=== PATIENT | male | born 1955 | race Caucasian/White ===

== ENCOUNTER 2016-10-26 15:38 | Emergency (ER) | payer MEDICARE, MEDICAID ==
[~2016-10-26] VITALS: Ht 167.6 cm; Wt 94.3 kg
[~2016-10-26 15:38] MED LIST: /DULO30CA; /TAMS4CA; ALDA25TA2; AMBI10TA; ASPI325T; BUPR15TA; CARTIA; CELE20TA; CETI10TA; COLA100C2; DARV100T; GAS-80CH; HYDROCODONE; IBUP600T; LEVO150T9; LISI5TAB; METO10TA2; MIRALEX; PERC5TAB8; POTA20TA; PRIL20CA; PRIL40CA; SIMV80TA; SPIR25TA2; SYNT125T; THERGRAN; TORS20TA2; TYLE500T53; VITA500T; VYTO10TA5; ZEGERID; [UNRECOGNIZED DRUG - OTHER]
[2016-10-26 15:40] VITALS: BP 123/73
[2016-10-26] MEDS ORDERED: LAMO50TA PO (15:54)
[2016-10-26] MEDS ORDERED: BELS1TAB3 PO (15:54)
[2016-10-26] MEDS ORDERED: MAGN400T2 PO (15:54)
[2016-10-26] MEDS ORDERED: ATOR1TAB18 PO (15:54)
[2016-10-26] MEDS ORDERED: IBUP80TA PO (15:54)
[2016-10-26] MEDS ORDERED: SERT-138 PO (15:54)
[2016-10-26] MEDS ORDERED: VITA100T2 PO (15:54)
[2016-10-26] MEDS ORDERED: VITA-130 PO (15:54)
[2016-10-26] MEDS ORDERED: POTA20TA6 PO (15:54)
[2016-10-26] MEDS ORDERED: LORA10TA2 PO (15:54)
[2016-10-26] MEDS ORDERED: LISI-542 PO (15:54)
[2016-10-26] MEDS ORDERED: TORS20TA2 PO (15:54)
[2016-10-26] MEDS ORDERED: ASPI81TA4 PO (15:54)
[2016-10-26] MEDS ORDERED: PRAZ2CAP PO (15:54)
[2016-10-26] MEDS ORDERED: DOK100TA PO (15:54)
[2016-10-26] MEDS ORDERED: TAB-TAB PO (15:54)
[2016-10-26] MEDS ORDERED: AMOX500C PO (15:54)
[2016-10-26] MEDS ORDERED: LEVO125T3 PO (15:54)
[2016-10-26] MEDS ORDERED: BUPR100T3 PO (15:54)
[2016-10-26] MEDS ORDERED: ESOM1CAP5 PO (15:54)
[2016-10-26] MEDS ORDERED: Carbidopa-Levodopa PO (15:54)
[2016-10-26] MEDS ORDERED: BELS1TAB4 PO (15:54)
[2016-10-26] MEDS ORDERED: TRAZ50TA4 PO (15:54)
[2016-10-26] MEDS ORDERED: DILT120T PO (15:54)
--- NOTE | 2016-10-26 16:46 | REP ---
Clinical: Trauma. Technique: AP, lateral, bilateral oblique views right foot. Findings: The osseous structures and joint spaces are intact and normal. There is no evidence for acute fracture or dislocation. Surrounding soft tissues are unremarkable. No subcutaneous emphysema or radiodense foreign body. Impression: No acute fracture or dislocation. Signed by Joe Crain MD 10/26/2016 04:37 P
== END 2016-10-26 17:03 | disposition home or self-care (01) ==
LOC: M ED 16:54
DX: S90.31XA Contusion of right foot, initial encounter (principal); W23.0XXA Caught, crushed, jammed, or pinched between moving objects, initial encounter; Y92.019 Unspecified place in single-family (private) house as the place of occurrence of the external cause; Y93.89 Activity, other specified; Y99.9 Unspecified external cause status; Z87.891 Personal history of nicotine dependence; Z79.899 Other long term (current) drug therapy

== ENCOUNTER 2016-12-26 07:26 | Inpatient (IN) | payer MEDICARE, OTHER ==
[~2016-12-26] VITALS: Ht 167.6 cm; Wt 92.4 kg
[~2016-12-26 07:26] MED LIST changes: +AMOX500C PO; +ASPI81TA18 PO; +ATOR80TA59 PO; +BELS1TAB3 PO; +BELS1TAB4 PO; +BUPR100T3 PO; +Carbidopa-Levodopa PO; +DILT120T PO; +DOK100TA PO; +ESOM1CAP5 PO; +IBUP80TA PO; +LAMO50TA PO; +LEVO125T4 PO; +LISI-542 PO; +LORA10TA2 PO; +MAGN400T2 PO; +POTA20TA6 PO; +PRAZ2CAP PO; +SERT-138 PO; +TAB-TAB PO; +TORS20TA2 PO; +TRAZ50TA11 PO; +VITA100T2 PO; +VITA500T PO
[2016-12-26] MEDS ORDERED: MORPHINE 4 MG/ML 1ML SYRINGE IV ONE (08:00)
[2016-12-26] MEDS ORDERED: ONDANSETRON 4MG/2ML VIAL (J2405) IV ONE ×2 (08:00→23:15)
[2016-12-26 08:02] LABS: BASO % 0.2 % (0.0-1.0); EOS # 0.2 K/mm3 (0.0-0.50); EOS % 0.8 % (0.0-3.0); LARGE UNSTAINED CELL # 0.1 K/mm3 (0.0-0.4); LARGE UNSTAINED CELL % 0.4 % (0.0-4.0); LYMPH # 0.8 K/mm3 (1.5-4.5); MEAN CORPUSCULAR HEMOGLOBIN 29.3 pg (27.0-33.0); MEAN CORPUSCULAR VOLUME 88.8 fl (80.0-96.0); MONO # 0.6 K/mm3 (0.0-0.8); MONO % 2.5 % (0.0-5.0); NEUTROPHILS # 22.9 K/mm3 (1.8-7.7); NEUTROPHILS % 93.1 % (36.0-66.0); PLATELET COUNT, AUTOMATED 291 k/mm3 (150-450); WHITE BLOOD COUNT 24.6 K/mm3 (4.0-10.0)
[2016-12-26 08:32] LABS: ALBUMIN 3.9 GM/DL (3.2-5.2); ALBUMIN/GLOBULIN RATIO 1.08 (1.00-1.93); BILIRUBIN,DIRECT 0.1 MG/DL (0.0-0.2); BILIRUBIN,TOTAL 0.6 MG/DL (0.2-1.0); CALCIUM LEVEL 9.2 MG/DL (8.8-10.2); CREATININE FOR GFR 1.38 MG/DL (0.70-1.30); GLOMERULAR FILTRATION RATE 55.4 (>49); POTASSIUM SERUM 4.3 MEQ/L (3.5-5.1); TOTAL PROTEIN 7.5 GM/DL (6.4-8.2)
[2016-12-26] MEDS: POTASSIUM CHLORIDE 10 MEQ SR TABLET PO SCH (09:00)
[2016-12-26] MEDS ORDERED: ASPIRIN 81 MG ENTERIC TAB PO SCH (09:00)
[2016-12-26] MEDS: THIAMINE 100 MG TAB PO SCH (09:00)
[2016-12-26] MEDS: MAGNESIUM OXIDE 400 MG TAB (MAG-OX) PO SCH (09:00)
[2016-12-26] MEDS: PANTOPRAZOLE 40MG TAB (PROTONIX) PO SCH (09:00)
[2016-12-26] MEDS ORDERED: GASTROGRAFIN SOLUTION 30ML PO ONE (09:40)
[2016-12-26] MEDS ORDERED: ISOVUE-370 76% 100ML VIAL (Q9967) As Ordered ONE (09:48)
[2016-12-26] MEDS ORDERED: GASTROGRAFIN SOLUTION 30ML (Q9963) PO ONE (10:10)
--- NOTE | 2016-12-26 12:03 | REP ---
CT abdomen pelvis with IV and oral contrast: Comparison is 12/13/2015 (without IV and oral contrast). The patient complains of diffuse abdominal pain. The patient has a history of cholecystectomy, triple bypass coronary artery surgery, thyroidectomy and hernia repair. The visualized lower lung emery are unremarkable except for dependent atelectasis. The hepatic parenchyma is homogeneous. There are surgical clips in the gallbladder fossa. The pancreas and spleen are normal size. There are calcified granulomas in the spleen, unchanged. The adrenals are unremarkable. The kidneys are unremarkable. The abdominal aorta is unremarkable except for focal calcified atheroma at the origin of the superior mesenteric artery, possibly resulting in stenosis. The origin of the celiac artery is unremarkable. There is calcified atheroma at the origin of the inferior mesenteric artery. Given patient symptomatology consider abdominal CT angiogram. However, if possible, this should be delayed for 24 hours. Because of the IV contrast administered for the current study. There is no retroperitoneal adenopathy or mass. There is a fixed hiatal hernia, unchanged. No pneumoperitoneum. There is wall thickening of the colon compatible with colitis in the appropriate clinical setting. This is a change from the comparison study. Pelvis: There is no ascites or adenopathy. The bladder is unremarkable. The pelvic bowel loops are unremarkable. Small bowel is unremarkable. There is no ascites. The appendix is not identified. Impression: Wall thickening of the colon compatible with colitis as a change from the prior study. No ascites or pneumoperitoneum. No bowel distension or obstruction. Calcified atheroma at the origins of the superior mesenteric artery and inferior mesenteric artery. Depending on symptomatology, CT abdominal angiography might be considered but this should be delayed for 24 hours, if possible, because of the IV contrast administered for the current study. Cholecystectomy. Calcified granulomas in the spleen. Hiatal hernia. Signed by Yosef Kebede MD 12/26/2016 11:52 A
[2016-12-26] MEDS ORDERED: CIPROFLOXACIN 400 MG in APPROPRIATE DILUENT 1 EA IV ONE (14:15)
[2016-12-26] MEDS ORDERED: metroNIDAZOLE 500 MG in APPROPRIATE DILUENT 1 EA IV ONE (14:15)
[2016-12-26] MEDS ORDERED: CARB25TA PO (14:48)
[2016-12-26] MEDS: NS 1,000 ML IV SCH (14:49)
[2016-12-26] MEDS ORDERED: ACETAMINOPHEN TAB 650MG DOSE (2X325MG) PO PRN (15:00)
--- NOTE | 2016-12-26 15:25 | HPEPDOC ---
General Date of Admission 12/26/16 Chief Complaint The patient is a 61-year-old male Presented to the ER with abdominal pain that progressed to nausea and vomiting. History of Present Illness Patient is a 61 year old male with a PMHx of COPD (ex-smoker, not on home oxygen), CAD s/p CAG (2004), DLP, HTN, Hypothyroidism, Remote Seizure history, ENA not on CPAP and GERD / Barretts esophagus who presented to the ER with abdominal pain. He noted that he had abdominal pain yesterday evening that progressed to nausea and vomiting. He notes that he has vomited >6 times since the onset. He reports that the vomitus is only food stuff and liquid, no signs of blood. He notes that the abdominal pain occurs diffusely, as a 10/10, aching / cramping pain, no radiation or alleviating / aggravating factors. He denies any fever or chills at home. Reports that he does not have diarrhea; has only had 1 bowel movement today. He has noted some blood on the toilet paper. He denies any new foods, denies any change in his weight, denies any change in his appetite. Reports that this has not happened before, however a prior documentation from 2009 indicated similar presentation. Denies any discomfort with urination, chest pain, shortness of breath or cough. Home Medications Scheduled (Esomeprazole Magnesium) 40 Mg Cap, 40 MG PO BID, (Reported) (Bupropion HCl Sr) 100 Mg Tab, 100 MG PO BID, (Reported) (Tab-A-Patricia) 1 Tab Tab, 1 TAB PO DAILY, (Reported) Ascorbic Acid (Vitamin C) 500 Mg Tab, 1,000 MG PO DAILY, (Reported) Atorvastatin Calcium (Atorvastatin Calcium) 80 Mg Tab, 80 MG PO QHS, (Reported) Carbidopa/Levodopa (Carbidopa/Levodopa 25-100 mg) 1 Tab Tab, 1 TAB PO BID, ( Reported) Ciprofloxacin HCl (Ciprofloxacin HCl) 500 Mg Tab, 500 MG PO Q12H Diltiazem HCl (Diltiazem HCl) 120 Mg Tab, 120 MG PO DAILY, (Reported) Docusate Sodium (Dok) 100 Mg Tab, 100 MG PO BID, (Reported) Lactobacillus Acidophilus (Bacid) 1 Tab Tab, 1 TAB PO BID Lamotrigine (Lamotrigine ER) 50 Mg Tab, 50 MG PO BID, (Reported) Levothyroxine Sodium (Synthroid) 125 Mcg Tab, 125 MCG PO DAILY, (Reported) Lisinopril (Lisinopril) 5 Mg Tab, 5 MG PO DAILY, (Reported) Loratadine (Loratadine) 10 Mg Tab, 10 MG PO QHS, (Reported) Magnesium Oxide (Magnesium Oxide) 400 Mg Tab, 400 MG PO DAILY, (Reported) Metronidazole (Flagyl) 500 Mg Tab, 500 MG PO Q8H FOR 10 DAYS Potassium Chloride (Potassium Chloride ER) 20 Meq Tab, 40 MEQ PO DAILY, ( Reported) Prazosin Hcl (Prazosin HCl) 2 Mg Cap, 2 MG PO QHS, (Reported) Sertraline HCl (Sertraline HCl) 100 Mg Tab, 100 MG PO QHS, (Reported) Suvorexant (Belsomra) 20 Mg Tab, 20 MG PO QHS, (Reported) Thiamine HCl (Vitamin B-1) 100 Mg Tab, 100 MG PO DAILY, (Reported) Torsemide (Torsemide) 20 Mg Tab, 20 MG PO DAILY, (Reported) Trazodone HCl (Trazodone HCl) 50 Mg Tab, 100 MG PO QHS, (Reported) Allergies Coded Allergies: No Known Allergies (Verified , 11/25/03) Past Medical History Medical History COPD (ex-smoker, not on home oxygen), CAD s/p CAG (2004), DLP, HTN, Hypothyroidism, Remote Seizure history, ENA not on CPAP and GERD / Barretts esophagus Surgical History Appendectomy (child) Cholecystectomy (2003) Thyroid surgery (at age 33) Rotator cuff repair (2007) Cervical discectomy (2006) Hiatal hernia repair () Family History - Mother at age 70 2/2 [place] - Father at age 82 2/2 [place] - No history of malignancies reported Social History - Denies the use of illicit drugs; Quit smoking 4 years prior (smoker of >30 years at 1ppd), Alcohol use in past - Denies recent travel or sick contacts - Lives in assisted living alone Review of Symptoms Other systems Constitutional: Denies weight loss, change in appetite, or recent trauma Eyes: No visual changes or eye pain Ears, Nose, Throat: Denies nose bleeds, or difficulty swallowing Cardiovascular: Denies chest pain, sweating, or orthopnea Respiratory: Denies cough, wheezing, or shortness of breath GI: Positive nausea, vomiting, abdominal pain, No diarrhea or constipation : Denies pain with urination or frequency Musculoskeletal: Denies joint pain or swelling Neuro / Psych: Denies muscle weakness or sensory loss Skin: No skin rashes noted All other review of systems negative; otherwise stated in history of present illness Vital Signs - Vitals: BP 142/70, HR 86, RR 16, Sat 93%RA, Temp 98.7F - General: Lying in bed, No acute distress, Speaking in full sentences, AAOx3 - HEENT: NC, AT, PERRLA - CVS: RRR, +S1S2, - Lungs: Fair air entry bilaterally, No appreciable wheezing / rales / rhonchi - Abdomen: Soft, Non-distended, Tenderness diffusely in all quadrants, Hypoactive bowel sounds - Extremities: No lower extremity edema, No calf tenderness - Neuro: No focal motor or sensory deficit - Skin: No visible rashes Laboratory Data Labs 24H Laboratory Tests 2 12/26/16 07:56: White Blood Count 24.6H, Red Blood Count 4.74, Hemoglobin 13.9L, Hematocrit 42.1 , Mean Corpuscular Volume 88.8, Mean Corpuscular Hemoglobin 29.3, Mean Corpuscular Hemoglobin Concent 33.0, Red Cell Distribution Width 13.0, Platelet Count 291, Neutrophils (%) (Auto) 93.1H, Lymphocytes (%) (Auto) 3.0L, Monocytes (%) (Auto) 2.5, Eosinophils (%) (Auto) 0.8, Basophils (%) (Auto) 0.2, Neutrophils # (Auto) 22.9H, Lymphocytes # (Auto) 0.8L, Monocytes # (Auto) 0.6, Eosinophils # (Auto) 0.2, Basophils # (Auto) 0.0, Large Unclassified Cells % 0.4 , Large Unclassified Cells # 0.1, Anion Gap 8, Glomerular Filtration Rate 55.4, Calcium Level 9.2, Aspartate Amino Transf (AST/SGOT) 28, Alanine Aminotransferase (ALT/SGPT) 29, Alkaline Phosphatase 234H, Total Bilirubin 0.6, Direct Bilirubin 0.1, Total Protein 7.5, Albumin 3.9, Albumin/Globulin Ratio 1.08, Lipase 93 12/26/16 08:35: Urine Appearance HAZY, Urine Color MESERET, Urine pH 5.0, Urine Specific Georgiana 1.017, Urine Protein NEGATIVE, Urine Glucose (UA) NEGATIVE, Urine Ketones TRACEH , Urine Urobilinogen 0.2, Urine Bilirubin NEGATIVE, Urine Leukocyte Esterase NEGATIVE, Urine Blood NEGATIVE, Urine Nitrite NEGATIVE, Urine WBC (Auto) 1, Urine RBC (Auto) 0, Urine Hyaline Casts (Auto) 2, Urine Bacteria (Auto) NEGATIVE , Urine Squamous Epithelial Cells 0, Urine Mucus (Auto) SMALL, Urine Sperm (Auto ) 12/26/16 12:55: Lactic Acid Level 1.3 CBC/BMP Laboratory Tests 12/26/16 07:56 Red Blood Count 4.74, Mean Corpuscular Volume 88.8, Mean Corpuscular Hemoglobin 29.3, Mean Corpuscular Hemoglobin Concent 33.0, Red Cell Distribution Width 13.0 , Neutrophils (%) (Auto) 93.1 H, Lymphocytes (%) (Auto) 3.0 L, Monocytes (%) ( Auto) 2.5, Eosinophils (%) (Auto) 0.8, Basophils (%) (Auto) 0.2, Neutrophils # ( Auto) 22.9 H, Lymphocytes # (Auto) 0.8 L, Monocytes # (Auto) 0.6, Eosinophils # (Auto) 0.2, Basophils # (Auto) 0.0 Microbiology Microbiology 12/26/16 Urine Culture, Received Pending Plan / VTE VTE Prophylaxis Ordered?: Yes Plan Plan Abdominal pain associated with nausea / vomiting possibly 2/2 colitis, possibly 2/2 ischemic colitis - Presented with abdominal pain, that progressed to nausea and vomiting - Physical reveals diffuse abdominal pain, hypoactive bowel sounds - Leukocytosis at 24.6; No lactic acidosis, Signs of GRAEME - CT abdomen / pelvis 12/26: wall thickening of the colon compatible with colitis, no ascites / pneumoperitoneum, no bowel distention / obstruction, calcified atheroma at origins of the SMA and CONCEPCION - Will trend lactic acid - Will check blood cultures - s/p Ciprofloxacin and Flagyl in the ER; will c/w Ceftriaxone and Flagyl Calcified atheroma at origins of the SMA and CONCEPCION - Will need to have a follow up imaging study after 24 hours, depending on renal function - CT abdomen with findings of atheroma; recommended CT abdominal angiogram - Will follow up AM renal function Elevated creatinine likely 2/2 hypovolemia 2/2 nausea and vomiting - Will check urine electrolytes, urine osmolality - Hold nephrotoxic medications; Hold Lisinopril and Torsemide - c/w IV fluid hydration - Repeat AM CMP COPD (ex-smoker, not on home oxygen) - c/w Loratadine for allergies CAD s/p CAG (2004) - c/w ASA, Atorvastatin DLP - c/w Atorvastatin HTN - Hold Lisinopril and Torsemide (re: Elevated Cr) - c/w Diltiazem and Prazosin Hypothyroidism - c/w Levothyroxine Depression - c/w Bupropion, Trazodone and Sertraline Parkinsons - c/w Carbidopa / Levodopa Remote Seizure history - c/w Lamotrigine ENA not on CPAP GERD / Barretts Esophagus - Will start Protonix DVT prophylaxis - Will start SCDs LEONCIO BEASLEY MD Dec 26, 2016 15:25
[2016-12-26 17:00] VITALS: BP 137/74
[2016-12-26] MEDS ORDERED: MORPHINE 2 MG/ML 1ML SYRINGE IV ONE (17:30)
[2016-12-26 18:01] LABS: ADD MANUAL DIFFER YES; MEAN CORPUSCULAR HEMOGLOBIN 29.7 pg (27.0-33.0); MEAN CORPUSCULAR HGB CONC 33.1 g/dl (32.0-36.5); MEAN CORPUSCULAR VOLUME 89.7 fl (80.0-96.0); PLATELET COUNT, AUTOMATED 278 k/mm3 (150-450); RED CELL DISTRIBUTION WIDTH 12.8 % (11.5-14.5); RETIC HEMOGLOBIN CONTENT CHr 31.7 PG (24-36); RETICULOCYTE ABSOLUTE ADVIA212 53 x10(9)/L (17-77); WHITE BLOOD COUNT 24.4 K/mm3 (4.0-10.0)
[2016-12-26 18:48] LABS: BANDS 1 % (< 11); PLATELET CLUMPS SMALL AMT
[2016-12-26 19:07] LABS: PERCENT SATURATION 6.8 % (19.7-37.4)
--- NOTE | 2016-12-26 19:47 | ECGEPIP ---
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 RBBB NONSPECIFIC T-WAVE ABNORMALITY NO PRIORS Electronically Signed On 12-26-2016 19:47:07 EDT by Jaswant Forbes
[2016-12-26] MEDS: cefTRIAXone SOD 1 GM in D5W MINI-BAG PLUS 50 ML IV SCH (21:10)
[2016-12-26] MEDS: buPROPion (WELLBUTRIN SR) 100 MG SR TAB PO SCH (21:10)
[2016-12-26] MEDS: traZODone 100 MG TAB PO SCH (21:10)
[2016-12-26] MEDS: LORATADINE 10 MG TAB PO SCH (21:10)
[2016-12-26] MEDS: SERTRALINE 100 MG TAB PO SCH (21:10)
[2016-12-26] MEDS: SINEMET 25-100 MG TAB PO SCH (21:11)
[2016-12-26] MEDS: ATORVASTATIN 20 MG TAB PO SCH (21:11)
[2016-12-26] MEDS: PRAZOSIN 1 MG CAP PO SCH (21:15)
[2016-12-26 22:00] VITALS: BP 121/62
--- NOTE | 2016-12-26 22:08 | CR ---
DATE OF CONSULTATION: 12/26/2016 BRIEF HISTORY OF PRESENT ILLNESS: The patient is an 81-year-old white male who has developed abdominal pain over the last 24 hours prior to admission, nausea, vomiting, and diarrhea. He ended up having some blood per rectum today after multiple episodes of diarrhea. He has been complaining of abdominal pain that has been persistent since yesterday. He states that he had a previous episode in 2009 similar to this. He did not complain of any fevers or chills, and his temperature here has been within normal limits; however, his white count has been elevated to 24,000. His hematocrit, however, has been stable. PAST MEDICAL HISTORY: Significant for: 1. History of coronary artery bypass grafting (CABG). 2. History of chronic obstructive pulmonary disease (COPD). 3. History of hypertension. 4. Hypothyroidism. 5. History of seizures. 6. History of obstructive sleep apnea. 7. History of Waite's esophagus status post appendectomy. 8. Cholecystectomy. 9. Rotator cuff repair. 10. Thyroid surgery. 11. Cervical diskectomy. 12. Hiatal hernia repair. MEDICATIONS: Include Nexium, aspirin, Wellbutrin, Tab-A-Patricia vitamin C, atorvastatin, carbidopa/levodopa, diltiazem, Colace, Lamictal, lisinopril, loratadine, magnesium oxide, potassium chloride, prazosin, Zoloft, Belsomra, vitamin B1, torsemide trazodone. PHYSICAL EXAMINATION: Reveals a 61-year male who looks in obvious discomfort. HEENT: Unremarkable. NECK: Supple without adenopathy. LUNGS: Clear anteriorly, although diminished posteriorly. HEART: Regular with multiple irregular beats. ABDOMEN: Soft, but he has tenderness throughout with some mild guarding without significant rebound or referred rebound. EXTREMITIES: Warm, well perfused. His CT scan does indeed reveal colitis with inflammation of his colon, extending from the rectum all up to the right colon. The patient has been on recent antibiotics. He states that he takes this for dental purposes and has been on antibiotics over the last few days prior to admission. IMPRESSION AND PLAN: The patient has evidence of colitis of undetermined etiology, but infectious-associated colitis would be the most likely etiology for several reasons. One of which is the recent antibiotic use. The second, more importantly, is the distribution is not consistent with ischemic colitis. Other options, of course, include new-onset inflammatory bowel disease with ulcerative colitis, extending from the rectum all the way to the right colon; however, this would be an unusual presentation and unusual time during the patient's life. Thus infectious colitis is the most likely. I would empirically treat him for Clostridium (C) difficile colitis and other bacterial infections, but possibly this could be a viral infection as well. The bright red blood per rectum is most likely colitis associated but easily could be hemorrhoids with the significant bleeding is having. The nausea and vomiting he was having is not surprising as well with a significant amount of inflammatory changes within his colon. I would recommend supportive care at this time and continue as you are doing.
[2016-12-26] MEDS: metroNIDAZOLE 500 MG in APPROPRIATE DILUENT 1 EA IV SCH (22:29)
[2016-12-26] MEDS: lamoTRIgine 25 MG TAB PO SCH (23:18)
[2016-12-27] MEDS: metroNIDAZOLE 500 MG in APPROPRIATE DILUENT 1 EA IV SCH ×3 (05:30→22:32)
[2016-12-27] MEDS: LEVOTHYROXINE 125MCG TABLET (0.125MG) PO SCH (05:30)
[2016-12-27] MEDS: NS 1,000 ML IV SCH (05:30)
[2016-12-27 05:48] LABS: BASO % 0.1 % (0.0-1.0); EOS # 0.1 K/mm3 (0.0-0.50); EOS % 0.7 % (0.0-3.0); LARGE UNSTAINED CELL # 0.2 K/mm3 (0.0-0.4); LARGE UNSTAINED CELL % 1.6 % (0.0-4.0); LYMPH # 1.6 K/mm3 (1.5-4.5); LYMPH % 9.1 % (24.0-44.0); MEAN CORPUSCULAR HGB CONC 32.4 g/dl (32.0-36.5); MEAN CORPUSCULAR VOLUME 89.3 fl (80.0-96.0); MONO # 0.8 K/mm3 (0.0-0.8); MONO % 5.3 % (0.0-5.0); NEUTROPHILS # 12.2 K/mm3 (1.8-7.7); NEUTROPHILS % 83.2 % (36.0-66.0); PLATELET COUNT, AUTOMATED 229 k/mm3 (150-450); RED CELL DISTRIBUTION WIDTH 13.1 % (11.5-14.5); WHITE BLOOD COUNT 14.7 K/mm3 (4.0-10.0)
[2016-12-27 06:00] VITALS: BP 108/55
[2016-12-27 06:00] LABS: ALBUMIN 2.9 GM/DL (3.2-5.2); ALBUMIN/GLOBULIN RATIO 0.94 (1.00-1.93); ALKALINE PHOSPHATASE 179 U/L (45-117); ALT/SGPT 41 U/L (12-78); ANION GAP 6 MEQ/L (8-16); AST/SGOT 40 U/L (15-37); BILIRUBIN,TOTAL 0.5 MG/DL (0.2-1.0); BLOOD UREA NITROGEN 17 MG/DL (7-18); CARBON DIOXIDE LEVEL 28 MEQ/L (21-32); CHLORIDE LEVEL 105 MEQ/L (98-107); CREATININE FOR GFR 0.94 MG/DL (0.70-1.30); GLOMERULAR FILTRATION RATE > 60.0 (>49); GLUCOSE, FASTING 118 MG/DL (80-110); MAGNESIUM LEVEL 2.3 MG/DL (1.8-2.4); SODIUM LEVEL 139 MEQ/L (136-145)
[2016-12-27] MEDS ORDERED: NICOTINE 14 MG/24 HR TRANSDERMAL TD SCH (09:00)
[2016-12-27] MEDS: THIAMINE 100 MG TAB PO SCH (09:59)
[2016-12-27] MEDS: lamoTRIgine 25 MG TAB PO SCH ×2 (09:59→21:34)
[2016-12-27] MEDS: SINEMET 25-100 MG TAB PO SCH ×2 (10:00→21:35)
[2016-12-27] MEDS: POTASSIUM CHLORIDE 10 MEQ SR TABLET PO SCH (10:00)
[2016-12-27] MEDS: MAGNESIUM OXIDE 400 MG TAB (MAG-OX) PO SCH (10:01)
[2016-12-27] MEDS: PANTOPRAZOLE 40MG TAB (PROTONIX) PO SCH (10:01)
[2016-12-27] MEDS: ASCORBIC ACID 500 MG TAB PO SCH (10:01)
[2016-12-27] MEDS: buPROPion (WELLBUTRIN SR) 100 MG SR TAB PO SCH ×2 (10:01→21:35)
--- NOTE | 2016-12-27 17:04 | IPN ---
DATE: 12/27/2016 Mr. Muñoz says that he is feeling better today. Unfortunately he is still passing stool with bright red blood and that pain has improved. No chest pain, not short of breath. VITALS: Temperature 98.7, pulse 66, respiration rate 20, blood pressure 108/55, 96% on room air. Intake and output notable for a negative balance of -780. Weight 93.6 kg with body max index of 3.3. His awake, appropriately interactive. Pleasantly conversant. Somewhat flattened affect. Breathing is symmetrical. Heart sounds regular rate and rhythm. Abdomen is soft with some mild left lower quadrant suprapubic tenderness without rebound or guarding. No significant lower extremity edema. LABORATORY DATA: BUN 17, creatinine 0.94, CRP 9.3. Urine culture shows no growth, blood cultures pending. Stool specimen ordered. ASSESSMENT: My assessment is as follows: This is a 61-year old with colitis. PLAN: Plan is as follows: 1. Infectious disease. Patient is on appropriate antibiotics for infectious colitis. I have discussed this case with Dr. Best who believes that this most likely represents infectious colitis. We will continue with nothing by mouth status, antibiotics, and monitoring. 2. Patient has acute lower gastrointestinal (GI) bleed. I have obtained informed consent from the patient for blood transfusion should that become necessary. We will continue to monitor his hemoglobin and hematocrit. 3. Patient's creatinine is improved. 4. Patient has a history of possible chronic obstructive pulmonary disease (COPD) not on home oxygen. 5. Patient has a history of coronary artery disease. We are holding aspirin due to bleeding. 6. Patient has dyslipidemia. 7. Patient has hypertension. Holding diuretics. 8. Patient has hypothyroidism. 9. Patient has a history of Parkinson's. 10. Patient has obstructive sleep apnea (ENA) not on CPAP.
[2016-12-27] MEDS: cefTRIAXone SOD 1 GM in D5W MINI-BAG PLUS 50 ML IV SCH (21:34)
[2016-12-27] MEDS: ATORVASTATIN 20 MG TAB PO SCH (21:34)
[2016-12-27] MEDS: PRAZOSIN 1 MG CAP PO SCH (21:34)
[2016-12-27] MEDS: traZODone 100 MG TAB PO SCH (21:35)
[2016-12-27] MEDS: SERTRALINE 100 MG TAB PO SCH (21:35)
[2016-12-27] MEDS: LORATADINE 10 MG TAB PO SCH (21:35)
[2016-12-27 22:00] VITALS: BP 142/67
[2016-12-28] MEDS: metroNIDAZOLE 500 MG in APPROPRIATE DILUENT 1 EA IV SCH ×3 (05:43→22:05)
[2016-12-28] MEDS: LEVOTHYROXINE 125MCG TABLET (0.125MG) PO SCH (05:43)
[2016-12-28 06:00] VITALS: BP 110/57
[2016-12-28 06:03] LABS: BASO % 0.3 % (0.0-1.0); EOS # 0.2 K/mm3 (0.0-0.50); EOS % 1.9 % (0.0-3.0); LARGE UNSTAINED CELL # 0.2 K/mm3 (0.0-0.4); LARGE UNSTAINED CELL % 1.9 % (0.0-4.0); LYMPH # 1.4 K/mm3 (1.5-4.5); LYMPH % 14.4 % (24.0-44.0); MEAN CORPUSCULAR HEMOGLOBIN 29.6 pg (27.0-33.0); MEAN CORPUSCULAR VOLUME 89.5 fl (80.0-96.0); MONO # 0.6 K/mm3 (0.0-0.8); NEUTROPHILS # 7.1 K/mm3 (1.8-7.7); NEUTROPHILS % 75.4 % (36.0-66.0); PLATELET COUNT, AUTOMATED 224 k/mm3 (150-450); RED CELL DISTRIBUTION WIDTH 12.9 % (11.5-14.5); WHITE BLOOD COUNT 9.4 K/mm3 (4.0-10.0)
[2016-12-28 06:24] LABS: ALBUMIN 2.9 GM/DL (3.2-5.2); ALBUMIN/GLOBULIN RATIO 0.88 (1.00-1.93); ALKALINE PHOSPHATASE 167 U/L (45-117); ALT/SGPT 18 U/L (12-78); ANION GAP 5 MEQ/L (8-16); AST/SGOT 27 U/L (15-37); BILIRUBIN,TOTAL 0.6 MG/DL (0.2-1.0); BLOOD UREA NITROGEN 13 MG/DL (7-18); CALCIUM LEVEL 8.2 MG/DL (8.8-10.2); CARBON DIOXIDE LEVEL 28 MEQ/L (21-32); CHLORIDE LEVEL 108 MEQ/L (98-107); CREATININE FOR GFR 0.91 MG/DL (0.70-1.30); GLOMERULAR FILTRATION RATE > 60.0 (>49); GLUCOSE, FASTING 93 MG/DL (80-110); MAGNESIUM LEVEL 2.1 MG/DL (1.8-2.4); POTASSIUM SERUM 3.8 MEQ/L (3.5-5.1); SODIUM LEVEL 141 MEQ/L (136-145); TOTAL PROTEIN 6.2 GM/DL (6.4-8.2)
[2016-12-28] MEDS: MAGNESIUM OXIDE 400 MG TAB (MAG-OX) PO SCH (08:58)
[2016-12-28] MEDS: PANTOPRAZOLE 40MG TAB (PROTONIX) PO SCH (08:58)
[2016-12-28] MEDS: lamoTRIgine 25 MG TAB PO SCH ×2 (08:58→21:09)
[2016-12-28] MEDS: ASCORBIC ACID 500 MG TAB PO SCH (08:58)
[2016-12-28] MEDS: buPROPion (WELLBUTRIN SR) 100 MG SR TAB PO SCH ×2 (08:58→21:09)
[2016-12-28] MEDS: POTASSIUM CHLORIDE 10 MEQ SR TABLET PO SCH (08:59)
[2016-12-28] MEDS: SINEMET 25-100 MG TAB PO SCH ×2 (08:59→21:11)
[2016-12-28] MEDS: THIAMINE 100 MG TAB PO SCH (08:59)
[2016-12-28] MEDS: ONDANSETRON 4MG/2ML VIAL (J2405) IV PRN (09:58)
[2016-12-28 14:00] VITALS: BP 140/72
[2016-12-28] MEDS: traZODone 100 MG TAB PO SCH (21:08)
[2016-12-28] MEDS: cefTRIAXone SOD 1 GM in D5W MINI-BAG PLUS 50 ML IV SCH (21:08)
[2016-12-28] MEDS: PRAZOSIN 1 MG CAP PO SCH (21:08)
[2016-12-28] MEDS: ATORVASTATIN 20 MG TAB PO SCH (21:09)
[2016-12-28] MEDS: SERTRALINE 100 MG TAB PO SCH (21:09)
[2016-12-28] MEDS: LORATADINE 10 MG TAB PO SCH (21:09)
[2016-12-28 22:00] VITALS: BP 142/71
[2016-12-29 02:00] VITALS: BP 105/53
[2016-12-29] MEDS: LEVOTHYROXINE 125MCG TABLET (0.125MG) PO SCH (05:37)
[2016-12-29] MEDS: metroNIDAZOLE 500 MG in APPROPRIATE DILUENT 1 EA IV SCH ×3 (05:37→21:24)
[2016-12-29 06:00] VITALS: BP 128/61
[2016-12-29 06:08] LABS: BASO % 0.5 % (0.0-1.0); EOS # 0.2 K/mm3 (0.0-0.50); EOS % 2.7 % (0.0-3.0); LARGE UNSTAINED CELL # 0.1 K/mm3 (0.0-0.4); LARGE UNSTAINED CELL % 1.6 % (0.0-4.0); LYMPH # 1.4 K/mm3 (1.5-4.5); LYMPH % 15.1 % (24.0-44.0); MEAN CORPUSCULAR HEMOGLOBIN 29.6 pg (27.0-33.0); MEAN CORPUSCULAR HGB CONC 33.3 g/dl (32.0-36.5); MEAN CORPUSCULAR VOLUME 88.7 fl (80.0-96.0); MONO # 0.6 K/mm3 (0.0-0.8); MONO % 7.2 % (0.0-5.0); NEUTROPHILS % 72.8 % (36.0-66.0); PLATELET COUNT, AUTOMATED 238 k/mm3 (150-450); RED CELL DISTRIBUTION WIDTH 13.1 % (11.5-14.5); WHITE BLOOD COUNT 8.3 K/mm3 (4.0-10.0)
[2016-12-29 06:21] LABS: ALBUMIN 2.8 GM/DL (3.2-5.2); ALBUMIN/GLOBULIN RATIO 0.88 (1.00-1.93); ALKALINE PHOSPHATASE 146 U/L (45-117); ALT/SGPT 15 U/L (12-78); ANION GAP 5 MEQ/L (8-16); AST/SGOT 22 U/L (15-37); BILIRUBIN,TOTAL 0.5 MG/DL (0.2-1.0); BLOOD UREA NITROGEN 11 MG/DL (7-18); CALCIUM LEVEL 8.2 MG/DL (8.8-10.2); CARBON DIOXIDE LEVEL 29 MEQ/L (21-32); CHLORIDE LEVEL 105 MEQ/L (98-107); CREATININE FOR GFR 0.93 MG/DL (0.70-1.30); GLOMERULAR FILTRATION RATE > 60.0 (>49); GLUCOSE, FASTING 99 MG/DL (80-110); MAGNESIUM LEVEL 2.2 MG/DL (1.8-2.4); POTASSIUM SERUM 3.6 MEQ/L (3.5-5.1); SODIUM LEVEL 139 MEQ/L (136-145)
[2016-12-29] MEDS: POTASSIUM CHLORIDE 10 MEQ SR TABLET PO SCH (08:24)
[2016-12-29] MEDS: SINEMET 25-100 MG TAB PO SCH ×2 (08:24→20:35)
[2016-12-29] MEDS: PANTOPRAZOLE 40MG TAB (PROTONIX) PO SCH (08:26)
[2016-12-29] MEDS: ASCORBIC ACID 500 MG TAB PO SCH (08:26)
[2016-12-29] MEDS: MAGNESIUM OXIDE 400 MG TAB (MAG-OX) PO SCH (08:26)
[2016-12-29] MEDS: lamoTRIgine 25 MG TAB PO SCH ×2 (08:26→20:35)
[2016-12-29] MEDS: buPROPion (WELLBUTRIN SR) 100 MG SR TAB PO SCH ×2 (08:26→20:36)
[2016-12-29] MEDS: THIAMINE 100 MG TAB PO SCH (08:26)
[2016-12-29] MEDS: ONDANSETRON 4MG/2ML VIAL (J2405) IV PRN (09:37)
[2016-12-29 14:00] VITALS: BP 148/81
[2016-12-29] MEDS: ATORVASTATIN 20 MG TAB PO SCH (20:35)
[2016-12-29] MEDS: LORATADINE 10 MG TAB PO SCH (20:35)
[2016-12-29] MEDS: SERTRALINE 100 MG TAB PO SCH (20:36)
[2016-12-29] MEDS: cefTRIAXone SOD 1 GM in D5W MINI-BAG PLUS 50 ML IV SCH (20:36)
[2016-12-29] MEDS: traZODone 100 MG TAB PO SCH (20:36)
[2016-12-29] MEDS: PRAZOSIN 1 MG CAP PO SCH (20:36)
--- NOTE | 2016-12-29 21:13 | IPN ---
DATE: 12/28/2016 Mr. Muñoz is feeling well today. He did become nauseous with taking his first bit of liquid. Abdominal pain is improved. He does complain of some suprapubic pain. No chest pain. No pain with bowel movements. He says that the bowel movements have slowed down. PHYSICAL EXAMINATION: VITAL SIGNS: Temperature 99.7, pulse 90, respiratory rate 18, blood pressure 140/72, 96% on room air. Input and output notable for a net fluid balance. Five bowel movements yesterday. He is awake and appropriately interactive. Pleasantly conversant. Mucous membranes are moist. Neck supple. Heart has regular rate and rhythm. Abdomen is soft, doughy, nontender. LABORATORY DATA: White cell count 9, hemoglobin 12.6 and stable, BUN 13, creatinine 0.9. C-reactive protein is improved to 8.5. ASSESSMENT: This is a 61-year-old with suspected infectious colitis, which is improving. Continue with antibiotics and advancing diet. I have discussed this case in person with Dr. Best, who believes that I will most likely will be able to discharge the patient tomorrow. The patient has acute lower GI bleed. The patient's hemoglobin and hematocrit remain stable. No role for blood transfusion. The patient has resolved acute renal failure. The patient has chronic obstructive pulmonary disease (COPD), not on home oxygen. The patient has history of coronary artery disease. Holding aspirin. The patient has dyslipidemia. The patient has hypertension. The patient has hypothyroidism. The patient has a history of Parkinson's. The patient has obstructive sleep apnea, not on treatment.
[2016-12-29 22:00] VITALS: BP 126/67
[2016-12-30] MEDS: metroNIDAZOLE 500 MG in APPROPRIATE DILUENT 1 EA IV SCH (05:37)
[2016-12-30] MEDS: LEVOTHYROXINE 125MCG TABLET (0.125MG) PO SCH (05:37)
[2016-12-30 05:55] LABS: BASO # 0.1 K/mm3 (0.0-0.2); EOS # 0.4 K/mm3 (0.0-0.50); EOS % 5.5 % (0.0-3.0); LARGE UNSTAINED CELL # 0.3 K/mm3 (0.0-0.4); LARGE UNSTAINED CELL % 3.5 % (0.0-4.0); LYMPH # 1.7 K/mm3 (1.5-4.5); LYMPH % 21.9 % (24.0-44.0); MEAN CORPUSCULAR HEMOGLOBIN 29.5 pg (27.0-33.0); MEAN CORPUSCULAR HGB CONC 33.3 g/dl (32.0-36.5); MEAN CORPUSCULAR VOLUME 88.4 fl (80.0-96.0); MONO # 0.6 K/mm3 (0.0-0.8); MONO % 7.9 % (0.0-5.0); NEUTROPHILS # 4.8 K/mm3 (1.8-7.7); NEUTROPHILS % 60.2 % (36.0-66.0); PLATELET COUNT, AUTOMATED 267 k/mm3 (150-450); RED CELL DISTRIBUTION WIDTH 12.9 % (11.5-14.5); WHITE BLOOD COUNT 7.9 K/mm3 (4.0-10.0)
[2016-12-30 06:00] VITALS: BP 113/59
[2016-12-30 06:16] LABS: ALBUMIN 2.8 GM/DL (3.2-5.2); ALBUMIN/GLOBULIN RATIO 1.04 (1.00-1.93); ALKALINE PHOSPHATASE 151 U/L (45-117); ALT/SGPT 31 U/L (12-78); ANION GAP 7 MEQ/L (8-16); AST/SGOT 66 U/L (15-37); BILIRUBIN,TOTAL 0.2 MG/DL (0.2-1.0); BLOOD UREA NITROGEN 14 MG/DL (7-18); CALCIUM LEVEL 8.1 MG/DL (8.8-10.2); CARBON DIOXIDE LEVEL 29 MEQ/L (21-32); CHLORIDE LEVEL 108 MEQ/L (98-107); CREATININE FOR GFR 0.89 MG/DL (0.70-1.30); GLOMERULAR FILTRATION RATE > 60.0 (>49); GLUCOSE, FASTING 101 MG/DL (80-110); POTASSIUM SERUM 3.9 MEQ/L (3.5-5.1); SODIUM LEVEL 144 MEQ/L (136-145); TOTAL PROTEIN 5.5 GM/DL (6.4-8.2)
[2016-12-30] MEDS: POTASSIUM CHLORIDE 10 MEQ SR TABLET PO SCH (08:47)
[2016-12-30] MEDS: THIAMINE 100 MG TAB PO SCH (08:47)
[2016-12-30 08:48] VITALS: BP 131/73
[2016-12-30] MEDS: MAGNESIUM OXIDE 400 MG TAB (MAG-OX) PO SCH (08:48)
[2016-12-30] MEDS: ASCORBIC ACID 500 MG TAB PO SCH (08:48)
[2016-12-30] MEDS: SINEMET 25-100 MG TAB PO SCH (08:49)
[2016-12-30] MEDS: lamoTRIgine 25 MG TAB PO SCH (08:49)
[2016-12-30] MEDS: buPROPion (WELLBUTRIN SR) 100 MG SR TAB PO SCH (08:49)
[2016-12-30] MEDS: PANTOPRAZOLE 40MG TAB (PROTONIX) PO SCH (08:49)
[2016-12-30] MEDS ORDERED: BACITAB PO (11:12)
[2016-12-30] MEDS ORDERED: CIPR500T3 PO (11:12)
[2016-12-30] MEDS ORDERED: FLAG500T PO (11:12)
--- NOTE | 2016-12-30 14:24 | IPN ---
DATE: 12/29/2016 Mr. Muñoz was trying solid food this morning. He suffered from some nausea associated with it and asked for medications to help with it. He is not passing any blood per rectum. Temperature 98.3, pulse 90, respiratory rate 20, blood pressure 128/61 and 94% on room air. Ins and outs notable for a negative fluid balance of -425. He is awake, appropriately interactive, with somewhat flattened affect. Mucous membranes moist. Neck supple. Breathing is symmetrical. Heart is distant sounding. Normal S1, S2. Abdomen soft, doughy, nontender. There is no extremity edema. White count 8.3, hemoglobin 12.3, BUN 11, creatinine 0.93, alkaline phosphatase 146. ASSESSMENT: This is a 61-year-old with infectious colitis. PLAN: 1. Infectious disease. Will continue on IV Zofran as he is having nausea today. Likely he can be switched to oral tomorrow and perhaps even be discharged. 2. The patient has acute lower GI bleed. Hemoglobin and hematocrit is stable. May benefit from outpatient colonoscopy. Will have follow up with Dr. Best. 3. The patient has acute renal failure which has resolved. 4. The patient has chronic obstructive pulmonary disease (COPD). 5. The patient has history of coronary artery disease, holding aspirin. 6. The patient has dyslipidemia. 7. The patient has hypertension. 8. The patient has hypothyroidism. 9. The patient has history of Parkinson's. 10. The patient has obstructive sleep apnea, not on CPAP.
--- NOTE | 2016-12-31 14:52 | DSES ---
DATE OF ADMISSION: 12/26/2016 DATE OF DISCHARGE: 12/30/2016 SPECIALISTS INVOLVED IN CARE: Dr. Best. COMPLICATIONS DURING STAY: None. PROCEDURES PERFORMED DURING STAY: None. DISCHARGE DIAGNOSES: 1. Infectious colitis. 2. Acute lower GI bleed. 3. Acute renal failure. 4. Chronic obstructive pulmonary disease (COPD). SUMMARY OF HOSPITALIZATION: This 60-year-old presented with abdominal pain, nausea, vomiting. He was admitted to the hospitalist service for concern over possible colitis. He developed bright red blood per rectum and was seen in consultation by Dr. Best and thought this represented an infectious etiology. CT of his abdomen and pelvis showed calcified atheroma at the origin at the superior mesenteric artery and inferior mesenteric artery. Based on his improvement, no further workup was recommended for this. His white cell count at the time of presentation was 24,000 and normalized with antibiotics. His renal function improved markedly. Stool studies were unremarkable, although pending at the time of discharge is stool for white cells, which will likely be positive. He was very concerned during the stay about the care of his cat Mittens. We were able to assist him finding temporary care for his kitten. On the day of discharge, he is feeling well. He is tolerating solid foods for 24 hours. Temperature is 98.2, pulse 82, respiratory rate 18, blood pressure 113/59, 93% on room air. Input and output notable for positive fluid balance of 330. He is no longer passing blood with bowel movements. Mucous membranes are moist. Neck is supple. Heart is distant sounding. Normal S1, S2. Abdomen is soft, doughy and nontender. Breathing is symmetrical and rested. Creatinine is 0.89, white cell count is 7.9, hemoglobin 12.3. DISCHARGE INSTRUCTIONS: He will followup with Dr. Horan within 1 week. Activity as tolerated. Diet as tolerated. Low residue diet. Continue ciprofloxacin 500 mg by mouth every 2 hours for 14 pills. He was given a prescription for Bacid twice a day #42 pills. Continue vitamin C supplement. Continue atorvastatin 80 mg by mouth at bedtime, continue Wellbutrin SR 100 mg by mouth twice a day. Continue Sinemet 25/100 one tablet by mouth twice daily, diltiazem 120 mg by mouth daily, Colace 100 mg by mouth twice daily, Nexium 40 m by mouth twice daily, Lamictal 50 mg by mouth twice daily, Synthroid 125 mcg by mouth daily, Lisinopril 5 mg by mouth daily, loratadine 10 mg by mouth at bedtime, magnesium oxide 400 mg by mouth daily, magnesium oxide 400 mg by mouth daily, potassium chloride 40 mEq by mouth daily, prazosin 2 mg by mouth at bedtime, sertraline 100 mg by mouth daily at bedtime, Belsomra 20 mg by mouth daily at bedtime, multivitamin tablet, B1 supplement, torsemide 20 mg by mouth daily, trazodone 100 mg by mouth daily at bedtime. Recommend discontinuing aspirin and ibuprofen for now. Recommending that he not take aspirin until he is seen by Dr. Horan. I also deferring to Dr. Horan on the appropriateness and timing of outpatient colonoscopy based on any outpatient records of when his last colonoscopy occurred.
== END 2016-12-30 13:45 | disposition home or self-care (01) | DRG 392 ==
LOC: EDBD 07:26 → M ED 07:26 → M ED INP 14:49 → M MSPAV 16:42
PROVIDERS: ADMIT Internal Medicine; ATTEND Internal Medicine
DX: A09 Infectious gastroenteritis and colitis, unspecified (principal); K62.5 Hemorrhage of anus and rectum; J44.9 Chronic obstructive pulmonary disease, unspecified; I25.10 Atherosclerotic heart disease of native coronary artery without angina pectoris; Z95.1 Presence of aortocoronary bypass graft; E78.5 Hyperlipidemia, unspecified; I10 Essential (primary) hypertension; E03.9 Hypothyroidism, unspecified; G47.33 Obstructive sleep apnea (adult) (pediatric); K21.9 Gastro-esophageal reflux disease without esophagitis; Z79.82 Long term (current) use of aspirin; Z87.891 Personal history of nicotine dependence; Z90.49 Acquired absence of other specified parts of digestive tract; R79.89 Other specified abnormal findings of blood chemistry; G20 Parkinson's disease; F32.9 Major depressive disorder, single episode, unspecified

== ENCOUNTER → 2017-02-08 | Outpatient (CLI) | payer MEDICARE, OTHER ==
[~2017-02-08] MED LIST changes: +BACITAB PO; +CARB25TA PO; +CIPR500T3 PO; +FLAG500T PO
--- NOTE | 2017-02-08 16:13 | REP ---
Thoracic spine series: Three views. History: Thoracic spine pain. Findings: Thoracic vertebral body heights are preserved. Alignment is normal. There is degenerative disc spurring at most of the mid and lower thoracic levels. Some disc space narrowing is seen at mid thoracic spine. Pedicles and posterior elements are intact. No paravertebral soft-tissue mass is seen. The patient is status post prior sternotomy and there are clips in the soft tissues of the neck anteriorly. A cervical spine ventral discectomy and fusion plate is noted. Swimmers lateral view shows no other abnormality. Impression: Degenerative disc changes. No fracture or collapse seen. Signed by Henrry Nobles MD 02/08/2017 04:36 P
--- NOTE | 2017-02-08 16:15 | REP ---
Lumbar spine radiographs: Five views. History: Dorsalis hip. Comparison study: October 13, 2007. Findings: Lumbar vertebral body heights are preserved. Alignment is normal. There is mild disc space narrowing at L3-4 and L4-5. This is slightly more prominent at L4-5, but not new. No spondylolysis or spondylolisthesis is seen. Psoas margins are symmetric. Sacrum and SI joints are unremarkable. Impression: Mild degenerative disc narrowing at L3-4 and L4-5. Otherwise negative. Signed by Henrry Nobles MD 02/08/2017 04:36 P
== END ==
LOC: M RAD 09:23
PROVIDERS: ATTEND Nurse Practitioner Family
DX: M51.86 Other intervertebral disc disorders, lumbar region (principal)

== ENCOUNTER → 2017-05-29 | Outpatient (REF) | payer MEDICARE, MEDICAID | LOC: M LAB REF 13:28 | PROVIDERS: ATTEND Family Medicine | DX: R26.89 Other abnormalities of gait and mobility (principal) ==

== ENCOUNTER → 2017-10-03 | Outpatient (CLI) | payer MEDICARE, OTHER, MEDICAID | LOC: M RAD 10:01 | DX: M25.511 Pain in right shoulder (principal); S92.511D Displaced fracture of proximal phalanx of right lesser toe(s), subsequent encounter for fracture with routine healing; X58.XXXD Exposure to other specified factors, subsequent encounter; Y92.89 Other specified places as the place of occurrence of the external cause | CPT/HCPCS: 73000 ==

== ENCOUNTER 2018-02-21 15:51 | Emergency (ER) | payer MEDICARE, OTHER | END 2018-02-21 20:12 | disposition home or self-care (01) | LOC: M ED 15:51 | DX: L03.112 Cellulitis of left axilla (principal); I10 Essential (primary) hypertension; E78.5 Hyperlipidemia, unspecified; R51 Headache; R56.9 Unspecified convulsions; J44.9 Chronic obstructive pulmonary disease, unspecified; G47.33 Obstructive sleep apnea (adult) (pediatric); E03.9 Hypothyroidism, unspecified; F41.9 Anxiety disorder, unspecified; F32.9 Major depressive disorder, single episode, unspecified; F79 Unspecified intellectual disabilities; Z95.1 Presence of aortocoronary bypass graft; Z87.891 Personal history of nicotine dependence; Z79.899 Other long term (current) drug therapy | CPT/HCPCS: 99283 ==

== ENCOUNTER → 2018-02-27 | Outpatient (CLI) | payer MEDICARE, OTHER | LOC: M RAD 10:25 | DX: M25.512 Pain in left shoulder (principal) | CPT/HCPCS: 71046 ==

== ENCOUNTER 2018-04-07 12:54 | Outpatient (RCR) | payer MEDICARE, OTHER | END 2018-04-09 | LOC: M PT 12:54 | DX: Z51.89 Encounter for other specified aftercare (principal); M54.5 Low back pain | CPT/HCPCS: 97161 ==

== ENCOUNTER 2018-12-08 13:37 | Emergency (ER) | payer MEDICARE, OTHER ==
[~2018-12-08] VITALS: Ht 167.6 cm; Wt 90.9 kg
[~2018-12-08 13:37] MED LIST changes: -/DULO30CA; -/TAMS4CA; -ASPI81TA18 PO; +ASPI81TA52 PO; -CARB25TA PO; +CARB25TA9 PO; +CYMB1CAP5; +FLOM0.4C39; +KEFL500C17 PO; +LORA-243 PO; -LORA10TA2 PO; +SYNT125T PO; +TRAZ-252 PO; -TRAZ50TA11 PO; -VITA100T2 PO; +VITA100T8 PO
--- NOTE | 2018-12-08 14:41 | REP ---
Clinical: Trauma with left hip pain. Technique: Frontal view of the pelvis with neutral and frog lateral views of the left hip. Findings: Osseous structures are intact and normal. No acute fracture dislocation. No significant degenerative changes. Impression: Age-appropriate examination. No evidence for acute fracture or dislocation. Electronically Signed by Joe Crain MD 12/08/2018 02:32 P
[2018-12-08 15:16] VITALS: BP 109/60
== END 2018-12-08 15:20 | disposition home or self-care (01) ==
LOC: M ED 13:37
DX: S70.02XA Contusion of left hip, initial encounter (principal); W01.0XXA Fall on same level from slipping, tripping and stumbling without subsequent striking against object, initial encounter; Y92.39 Other specified sports and athletic area as the place of occurrence of the external cause; Y93.54 Activity, bowling; Z79.899 Other long term (current) drug therapy

== ENCOUNTER 2019-06-29 08:27 | Day surgery (SDC) | payer MEDICARE, MEDICAID ==
[~2019-06-29] VITALS: Ht 167.6 cm; Wt 92.1 kg
[~2019-06-29 08:27] MED LIST changes: +LIDOCAINE 1% MDV 20ML VIAL SQ PRN; +LR 1,000 ML IV ONE; +THIA100T7 PO; +ceFAZolin SOD 2 GM in IV 1 EA IV ONE
[2019-06-29] MEDS ORDERED: LIDOCAINE 2% INJ 100 MG/5 ML SDV (FOR ANES.) As Ordered ONE (08:59)
[2019-06-29] MEDS ORDERED: ONDANSETRON 4MG/2ML VIAL (J2405) As Ordered ONE (08:59)
[2019-06-29] MEDS ORDERED: propofoL 200 MG/20 ML VIAL As Ordered ONE (08:59)
[2019-06-29] MEDS ORDERED: dexameTHASONE 4 MG/ML 1ML VIAL (J1100) As Ordered ONE (08:59)
[2019-06-29] MEDS ORDERED: MIDAZOLAM INJ 2 MG/2 ML VIAL (J2250) As Ordered ONE (09:00)
[2019-06-29] MEDS ORDERED: fentaNYL 100 MCG/2 ML INJECTION (J3010) As Ordered ONE (09:00)
[2019-06-29] MEDS ORDERED: LIDOCAINE 2% W/ EPINEPHRINE 1.7 ML DENTAL INJ As Ordered ONE (09:47)
[2019-06-29] MEDS ORDERED: ACETAMINOPHEN 1000MG 100ML IV BTL (OFIRMEV) (J0131 PER 10MG) As Ordered ONE (10:24)
[2019-06-29] MEDS ORDERED: KETOROLAC 60 MG/2 ML VIAL (J1885) As Ordered ONE (10:31)
--- NOTE | 2019-06-29 11:52 | RO ---
DATE OF PROCEDURE: 06/29/2019 PREOPERATIVE DIAGNOSIS: Grossly decade remaining dentition. POSTOPERATIVE DIAGNOSIS: Grossly decade remaining dentition FINDINGS: Were consistent with the preoperative diagnosis. PROCEDURE: Surgical extraction of remaining dentition with alveoplasty. SURGEON: Jason Taylor DDS ASSISTANTS ON THE CASE: Nash. ANESTHESIA: Dr. Mejía assisted by JOSÉ MIGUEL Dumont. There were no specimens. There were no complications during the case. The nurse for the case was Vivien. BLOOD LOSS: 100 mL. The patient received 1100 mL of lactated Ringer. The patient was taken to the postanesthesia care unit (PACU) in stable condition and later discharged to home with instructions for postoperative care, medications, and followup. INDICATIONS FOR THE PROCEDURE: Mr. Shiva Muñoz is a 63-year-old male with a history of cardiomyopathy, as well as hyperlipidemia, high blood pressure, and mental incompetance. He was seen in the clinic for evaluation of his remaining grossly decayed dentition with the desire to have the remaining teeth removed and referral for removal of teeth and alveoplasty in preparation for a denture. Reviewed all the risks, complications, and alternatives with the patient. Suggested that we go to the operating room for the case. The patient had all his questions answered and elected to undergo the procedure under general anesthesia in the main operating room. There were no complications with that. The patient's paperwork was completed, and he was prepared for the operating room. DESCRIPTION OF THE PROCEDURE: The patient was seen and identified in the preoperative holding area. All necessary paperwork was completed. He was taken to operating room #2 where he was placed under general anesthesia via nasal endotracheal intubation. The tube was secured. Time-out was performed. The throat was suctioned clean and dry, and a throat pack was placed. Local anesthetic in the form of 2% lidocaine with 1:100,000 epinephrine was injected along the maxilla and mandible. An incision was then made using a 15 blade around the cervical area of each tooth. The tissue was released. The teeth were extracted using surgical technique. A 703 bur was used to remove buccal bone. The teeth were then sectioned if necessary and removed. The sockets were curetted, and everything was thoroughly irrigated. The bone was then trimmed using a rongeur followed by bone file. The patient was then sutured close using a 3-0 chromic gut. Primary hemostasis was achieved. The throat was suctioned clean and dry, and the throat pack was removed. The patient was allowed to emerge from general anesthesia and did so without any complications. He was taken to the PACU in stable condition and later discharged to home with instructions for postoperative care and followup.
[2019-06-29] MEDS ORDERED: PERCOCET 5MG/325MG TAB PO PRN ×2 (12:00→13:15)
[2019-06-29] MEDS ORDERED: METOCLOPRAMIDE INJ 10MG/2ML VIAL (J2765) IV PRN (12:00)
[2019-06-29] MEDS ORDERED: fentaNYL 100 MCG/2 ML INJECTION (J3010) IV PRN (12:00)
[2019-06-29] MEDS ORDERED: LR 1,000 ML IV SCH ×2 (12:00)
[2019-06-29] MEDS ORDERED: ONDANSETRON 4MG/2ML VIAL (J2405) IV PRN (12:00)
[2019-06-29] MEDS ORDERED: IBUPROFEN 600 MG TAB PO PRN (13:15)
[2019-06-29 18:30] VITALS: BP 130/79
--- NOTE | 2019-06-30 06:49 | ECGEPIP ---
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
== END 2019-06-29 19:00 | disposition home or self-care (01) ==
LOC: M SDC 08:27
PROVIDERS: ATTEND Dentist
DX: K02.9 Dental caries, unspecified (principal); I10 Essential (primary) hypertension; I42.9 Cardiomyopathy, unspecified; E78.49 Other hyperlipidemia; E03.9 Hypothyroidism, unspecified; J44.9 Chronic obstructive pulmonary disease, unspecified; Z95.1 Presence of aortocoronary bypass graft; Z87.891 Personal history of nicotine dependence; I25.10 Atherosclerotic heart disease of native coronary artery without angina pectoris; F32.9 Major depressive disorder, single episode, unspecified; G47.30 Sleep apnea, unspecified; Z79.899 Other long term (current) drug therapy
CPT/HCPCS: 41874; 41899; 88300; 93005; J0131; J0690; J1100; J1885; J2250; J2405; J3010

== ENCOUNTER → 2019-07-22 | Outpatient (CLI) | payer MEDICARE, MEDICAID ==
[~2019-07-22] MED LIST changes: -LIDOCAINE 1% MDV 20ML VIAL SQ PRN; -LR 1,000 ML IV ONE; -ceFAZolin SOD 2 GM in IV 1 EA IV ONE
--- NOTE | 2019-07-22 09:06 | REP ---
Clinical: Elevated liver function tests. Technique: Real time glover scale ultrasound examination using curved array transducer. Findings: The liver is diffusely hyperechoic with poor through transmission suggesting fatty infiltration. No focal hepatic lesion identified. The pancreas is incompletely evaluated due to interposed bowel gas. Evidence of prior cholecystectomy. The right kidney is normal in reniform shape without hydronephrosis and measures 11.1 x 5.1 x 5.9 cm. Impression: 1. Hepatic steatosis. Electronically Signed by Joe Crain MD 07/22/2019 08:58 A
== END ==
LOC: M RAD 07:01
PROVIDERS: ATTEND Family Medicine
DX: R74.8 Abnormal levels of other serum enzymes (principal); K76.0 Fatty (change of) liver, not elsewhere classified

== ENCOUNTER → 2019-11-04 | Outpatient (CLI) | payer MEDICARE, MEDICAID ==
[~2019-11-04] MED LIST changes: +VITA-243 PO; -VITA500T PO
[2019-11-04 14:01] LABS: INR 0.98; PROTHROMBIN TIME 12.7 SECONDS (11.8-14.0)
[2019-11-04 14:22] LABS: ALBUMIN 3.9 GM/DL (3.2-5.2); ALT/SGPT 31 U/L (12-78); BILIRUBIN,DIRECT 0.1 MG/DL (0.0-0.2); BILIRUBIN,TOTAL 0.3 MG/DL (0.2-1.0); IRON (FE) 68 UG/DL (65-175); PERCENT SATURATION 20.1 % (19.7-50.0); TOTAL IRON BINDING CAPACITY 338 UG/DL (250-450); TOTAL PROTEIN 7.4 GM/DL (6.4-8.2)
[2019-11-04 14:39] LABS: HEPATITIS B SURFACE ANTIGEN NEGATIVE (NEGATIVE)
[2019-11-04 15:07] LABS: HEPATITIS B CORE ANTIBODY IGM NEGATIVE (NEGATIVE); HEPATITIS C VIRUS ABY INDEX 0.1 INDEX (<0.8)
[2019-11-04 15:09] LABS: HEPATITIS A ANTIBODY IGM NEGATIVE (NEGATIVE)
[2019-11-06 16:08] LABS: ANCA-ATYPICAL <1:20 titer (Neg:<1:20); ANTI-MITOCHONDRIAL ANTIBODY <20.0 Units (0.0-20.0); ANTINUCLEAR ANTIBODIES DIRECT Negative (Negative); CYTOPLASMIC NEUTROP AB ANCA-C <1:20 titer (Neg:<1:20); LIVER-KIDNEY MICROSOMAL ABY <20.1 Units (0.0-20.0); PERINUCLEAR AB ANCA-P <1:20 titer (Neg:<1:20)
== END ==
LOC: M LAB 12:25
PROVIDERS: ATTEND Internal Medicine Gastroenterology
DX: R94.5 Abnormal results of liver function studies (principal)

== ENCOUNTER 2020-01-05 12:15 | Day surgery (SDC) | payer MEDICARE, MEDICAID ==
[~2020-01-05 12:15] MED LIST changes: -TAB-TAB PO; +TAB-TAB2 PO
[2020-01-05] MEDS ORDERED: propofoL 200 MG/20 ML VIAL As Ordered ONE (12:36)
[2020-01-05] MEDS ORDERED: LIDOCAINE 2% 100MG/5ML SDV (FOR ANES.) As Ordered ONE (12:36)
--- NOTE | 2020-02-17 11:31 | ROOR ---
Patient Name: Shiva Muñoz Procedure Date: 01/05/2020 12:20 PM Date of : 1955 Age: 64 Room: [facility] Gender: Male Note Status: Finalized Procedure: Upper GI endoscopy Indications: Surveillance procedure, Surveillance for malignancy due to personal history of Waite's esophagus, Heartburn Providers: Wes PRICE MD Referring MD: Surjit Horan MD Requesting Provider: Medicines: Monitored Anesthesia Care Complications: No immediate complications. Procedure: Pre-Anesthesia Assessment: - The heart rate, respiratory rate, oxygen saturations, blood pressure, adequacy of pulmonary ventilation, and response to care were monitored throughout the procedure. The Endoscope was introduced through the mouth, and advanced to the second part of duodenum. The upper GI endoscopy was accomplished without difficulty. The patient tolerated the procedure well. Findings: There were esophageal mucosal changes consistent with long-segment Waite's esophagus present in the lower third of the esophagus. The maximum longitudinal extent of these mucosal changes was 6 cm in length. Mucosa was biopsied with a cold forceps for histology randomly from 29 to 35 cm from the incisors. A total of 3 specimen bottles were sent to pathology. A medium-sized hiatal hernia was present. Evidence of an anti-reflux surgical site was found in the cardia. This was characterized by a non-intact appearance. The examined duodenum was normal. Impression: - Esophageal mucosal changes consistent with 6 long-segment Waite's esophagus. smooth, no nodularity. Biopsied. - Medium-sized hiatal hernia. - An anti-reflux surgical site was found, characterized by a non-intact appearance. - Normal examined duodenum. Recommendation: - Continue present medications. - If barretts esophagus benign, Repeat upper endoscopy in 3 years for surveillance. - Telephone endoscopist for pathology results in 2 weeks. Wes Price MD Wes PRICE MD 01/05/2020 12:38:35 PM Electronically signed by Wes PRICE MD Number of Addenda: 0 Note Initiated On: 01/05/2020 12:20 PM Estimated Blood Loss: Estimated blood loss: none.
== END 2020-01-05 13:00 | disposition home or self-care (01) ==
LOC: M OPP 12:15
PROVIDERS: ATTEND Internal Medicine Gastroenterology
DX: K22.70 Barrett's esophagus without dysplasia (principal); K44.9 Diaphragmatic hernia without obstruction or gangrene; Z98.890 Other specified postprocedural states; R12 Heartburn; J44.9 Chronic obstructive pulmonary disease, unspecified; Z79.899 Other long term (current) drug therapy

== ENCOUNTER 2020-03-01 15:28 | Emergency (ER) | payer MEDICARE, MEDICAID ==
[~2020-03-01] VITALS: Ht 167.6 cm; Wt 87.4 kg
[2020-03-01 15:29] VITALS: BP 129/67
[2020-03-01] MEDS ORDERED: VITA500T11 (15:39)
[2020-03-01] MEDS ORDERED: PRAZ2CAP (15:39)
--- NOTE | 2020-03-01 16:56 | REPVR ---
PROCEDURE INFORMATION: Exam: XR Right Shoulder Exam date and time: 03/01/2020 4:46 PM Age: 64 years old Clinical indication: Pain; Shoulder; Right; Additional info: Pain/dec rom TECHNIQUE: Imaging protocol: XR Right shoulder. Views: 2 or more views. COMPARISON: CR Shoulder, complete 12/31/2019 9:26 PM FINDINGS: Bones/joints: Chronic widening of the acromioclavicular joint space. Chronic mild impaction of the superolateral humeral head. Degenerative change of the spine. Postsurgical change of the spine. No acute fracture. No dislocation. Soft tissues: Normal. IMPRESSION: No acute osseous abnormality. Electronically signed by: Gabriella Powers On 03/01/2020 16:56:30 PM
[2020-03-01] MEDS ORDERED: NAPR-837 PO (17:02)
== END 2020-03-01 17:32 | disposition home or self-care (01) ==
LOC: M ED 15:28
DX: S73.101A Unspecified sprain of right hip, initial encounter (principal); M19.011 Primary osteoarthritis, right shoulder; X58.XXXA Exposure to other specified factors, initial encounter; Y92.9 Unspecified place or not applicable; Y93.9 Activity, unspecified; Y99.9 Unspecified external cause status; I10 Essential (primary) hypertension; E78.5 Hyperlipidemia, unspecified; F79 Unspecified intellectual disabilities; R56.9 Unspecified convulsions; J44.9 Chronic obstructive pulmonary disease, unspecified; G47.33 Obstructive sleep apnea (adult) (pediatric); K21.9 Gastro-esophageal reflux disease without esophagitis; E03.9 Hypothyroidism, unspecified; F41.9 Anxiety disorder, unspecified; F32.9 Major depressive disorder, single episode, unspecified; Z79.899 Other long term (current) drug therapy

== ENCOUNTER 2020-06-19 01:56 | Emergency (ER) | payer MEDICARE, MEDICAID ==
[~2020-06-19] VITALS: Ht 167.6 cm; Wt 79.0 kg
[~2020-06-19 01:56] MED LIST changes: -DOK100TA PO; +DOK100TA2 PO; -LISI-542 PO; +LISI-898 PO; +NAPR-837 PO; +PRAZ2CAP; +VITA500T11
[2020-06-19] MEDS ORDERED: HEPARIN DRIP 25,000 UNITS in IV 1 EA IV SCH (02:11)
[2020-06-19] MEDS ORDERED: TENECTEPLASE 50 MG KIT (TNKase) (J3101 PER 1MG) IV ONE ×2 (02:15→02:30)
[2020-06-19] MEDS ORDERED: CLOPIDOGREL 300 MG TAB (PLAVIX) PO ONE (02:15)
[2020-06-19] MEDS ORDERED: HEPARIN SOD (PORCINE) 5000UNITS/ML 1ML VIAL/SYRINGE IV ONE (02:15)
[2020-06-19 02:21] LABS: BASO % 0.5 % (0.0-1.0); EOS # 0.3 10^3/uL (0.0-0.5); EOS % 4.4 % (0.0-3.0); HEMATOCRIT 38.4 % (42.0-52.0); HEMOGLOBIN 12.3 g/dl (13.5-17.5); LYMPH # 2.2 10^3/uL (1.5-5.0); MEAN CORPUSCULAR HEMOGLOBIN 28.4 pg (27.0-33.0); MEAN CORPUSCULAR VOLUME 88.7 fl (80.0-96.0); MONO # 0.7 10^3/uL (0.0-0.8); MONO % 11.7 % (0.0-5.0); NEUTROPHILS # 2.7 10^3/uL (1.5-8.5); NEUTROPHILS % 46.2 % (36.0-66.0); PLATELET COUNT, AUTOMATED 197 10^3/uL (150-450); RED BLOOD COUNT 4.33 10^6/uL (4.30-6.10); WHITE BLOOD COUNT 5.9 10^3/uL (4.0-10.0)
[2020-06-19] MEDS ORDERED: MORPHINE 2 MG/ML 1ML VIAL (J2270) IV ONE (02:30)
[2020-06-19 02:31] LABS: INR 0.98; PROTHROMBIN TIME 13.2 SECONDS (12.5-14.3)
[2020-06-19 02:32] LABS: PARTIAL THROMBOPLASTIN TIME 34.6 SECONDS (24.2-38.5)
--- NOTE | 2020-06-19 02:57 | REPVR ---
PROCEDURE INFORMATION: Exam: XR Chest, 1 View Exam date and time: 06/19/2020 2:25 AM Age: 64 years old Clinical indication: Chest pain TECHNIQUE: Imaging protocol: XR of the chest Views: 1 view. COMPARISON: CR Chest, 2 view PA, Lat 02/27/2018 10:46 AM FINDINGS: Lungs: Surgical clips are noted about the left hemithorax. The right lung is unchanged. Increased left perihilar and left base infiltrates. Pleural space: New left pleural effusion. Heart/Mediastinum: The heart and mediastinum are similar. Bones/joints: Status post anterior fusion of the lower cervical spine. There are surgical clips about the trachea suggesting thyroid surgery. IMPRESSION: 1. New left pleural effusion and mild left perihilar and left base infiltrates since 02/27/2018. 2. Otherwise stable chest. Electronically signed by: Jeancarlos Hardy On 06/19/2020 02:58:08 AM
[2020-06-19 03:00] VITALS: BP 99/54
[2020-06-19 03:09] LABS: RSV AMPLIFICATION NEGATIVE (NEGATIVE)
[2020-06-19] MEDS ORDERED: NS 500 ML IV ONE (03:15)
[2020-06-19 03:16] LABS: ALBUMIN 3.4 GM/DL (3.2-5.2); ALT/SGPT 21 U/L (12-78); BILIRUBIN,DIRECT 0.1 MG/DL (0.0-0.2); BILIRUBIN,TOTAL 0.4 MG/DL (0.2-1.0); BLOOD UREA NITROGEN 12 MG/DL (7-18); CALCIUM LEVEL 8.2 MG/DL (8.8-10.2); CARBON DIOXIDE LEVEL 27 MEQ/L (21-32); CHLORIDE LEVEL 106 MEQ/L (98-107); CK-MB VALUE MASS 2.6 NG/ML (<3.6); CPK CREATINE PHOSPHOKINASE 117 U/L (39-308); CREATININE FOR GFR 0.95 MG/DL (0.70-1.30); FREE T4 1.21 NG/DL (0.76-1.46); GLOMERULAR FILTRATION RATE > 60.0 (>49); GLUCOSE, FASTING 121 MG/DL (70-100); LIPASE 152 U/L (73-393); MB/CK RELATIVE INDEX 2.22 (< OR =4); POTASSIUM SERUM 3.5 MEQ/L (3.5-5.1); SODIUM LEVEL 140 MEQ/L (136-145); THYROID STIMULATING HORMONE 0.337 uIU/ML (0.358-3.740); TOTAL PROTEIN 6.2 GM/DL (6.4-8.2); TROPONIN I < 0.02 NG/ML (< 0.10)
--- NOTE | 2020-06-19 06:40 | ECGEPIP ---
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
== END 2020-06-19 03:09 | disposition short-term general hospital (02) ==
LOC: M ED 01:56
DX: I21.3 ST elevation (STEMI) myocardial infarction of unspecified site (principal); I25.10 Atherosclerotic heart disease of native coronary artery without angina pectoris; I10 Essential (primary) hypertension; E78.5 Hyperlipidemia, unspecified; E07.9 Disorder of thyroid, unspecified; K21.9 Gastro-esophageal reflux disease without esophagitis; R56.9 Unspecified convulsions; G47.33 Obstructive sleep apnea (adult) (pediatric); J44.9 Chronic obstructive pulmonary disease, unspecified; F17.200 Nicotine dependence, unspecified, uncomplicated; Z95.1 Presence of aortocoronary bypass graft; Z79.899 Other long term (current) drug therapy
CPT/HCPCS: 71045; 80048; 80076; 82550; 82553; 83690; 84439; 84443; 84484; 85025; 85610; 85730; 87631; 93005; 93041; 94760; 96374; 96375; 99285; J1644; J2270; J3101

== ENCOUNTER → 2020-08-02 | Outpatient (REF) | payer MEDICARE, MEDICAID | LOC: M LAB REF 16:28 | PROVIDERS: ATTEND Physician Assistant Medical | DX: N39.0 Urinary tract infection, site not specified (principal) ==

== ENCOUNTER 2020-08-23 09:53 | Emergency (ER) | payer MEDICAID, MEDICARE ==
[~2020-08-23] VITALS: Ht 175.3 cm; Wt 40.9 kg
--- NOTE | 2020-08-23 10:19 | REP ---
INDICATION: CHEST PAIN. COMPARISON: Comparison portable chest x-ray 19 June 2020. TECHNIQUE: Portable upright AP chest radiograph. FINDINGS: Patient is status post ventral discectomy and fusion plating in the lower cervical spine. Surgical clips are noted in the soft tissues on either side of the trachea at the thoracic inlet consistent with thyroid surgery. There are multiple surgical clips in the left chest as well post thoracotomy. The previously noted pleural changes on the left have improved. No free pleural effusion is noted. No focal infiltrate is seen. Heart is not enlarged. Pulmonary vasculature is not increased. Monitoring electrodes are seen.. There is left coronary artery stent visible. IMPRESSION: No acute disease. Postsurgical changes. Coronary artery stent material is visible.. <Electronically signed by Davon Nobles > 08/23/20 [id number]
[2020-08-23 10:33] LABS: BASO % 0.5 % (0.0-1.0); EOS # 0.3 10^3/uL (0.0-0.5); EOS % 5.3 % (0.0-3.0); HEMATOCRIT 37.6 % (42.0-52.0); HEMOGLOBIN 11.9 g/dl (13.5-17.5); LYMPH # 1.3 10^3/uL (1.5-5.0); LYMPH % 22.6 % (24.0-44.0); MEAN CORPUSCULAR HEMOGLOBIN 28.7 pg (27.0-33.0); MEAN CORPUSCULAR HGB CONC 31.6 g/dl (32.0-36.5); MEAN CORPUSCULAR VOLUME 90.8 fl (80.0-96.0); MONO # 0.6 10^3/uL (0.0-0.8); MONO % 10.4 % (2.0-8.0); NEUTROPHILS # 3.6 10^3/uL (1.5-8.5); NEUTROPHILS % 60.9 % (36.0-66.0); PLATELET COUNT, AUTOMATED 185 10^3/uL (150-450); RED BLOOD COUNT 4.14 10^6/uL (4.30-6.10); WHITE BLOOD COUNT 5.8 10^3/uL (4.0-10.0)
[2020-08-23] MEDS ORDERED: GI COCKTAIL 50ML BTL(HYOSCYAMINE/MAALOX/LIDOCAINE VISCOUS)(1:3:1) PO ONE (10:50)
[2020-08-23 11:15] LABS: ALBUMIN 3.3 GM/DL (3.2-5.2); ALT/SGPT 13 U/L (12-78); BILIRUBIN,DIRECT < 0.1 MG/DL (0.0-0.2); BILIRUBIN,TOTAL 0.5 MG/DL (0.2-1.0); BLOOD UREA NITROGEN 9 MG/DL (7-18); CALCIUM LEVEL 8.6 MG/DL (8.8-10.2); CARBON DIOXIDE LEVEL 32 MEQ/L (21-32); CHLORIDE LEVEL 108 MEQ/L (98-107); CPK CREATINE PHOSPHOKINASE 80 U/L (39-308); CREATININE FOR GFR 1.02 MG/DL (0.70-1.30); GLOMERULAR FILTRATION RATE > 60.0 (>49); GLUCOSE, FASTING 86 MG/DL (70-100); LIPASE 69 U/L (73-393); NT-PRO BNP 551 PG/ML (<125); POTASSIUM SERUM 3.7 MEQ/L (3.5-5.1); SODIUM LEVEL 142 MEQ/L (136-145); TOTAL PROTEIN 5.9 GM/DL (6.4-8.2); TROPONIN I < 0.02 NG/ML (< 0.10)
[2020-08-23 14:06] LABS: CK-MB VALUE MASS 2.2 NG/ML (<3.6); CPK CREATINE PHOSPHOKINASE 71 U/L (39-308); TROPONIN I < 0.02 NG/ML (< 0.10)
[2020-08-23] MEDS ORDERED: SUCR1SS PO (15:11)
[2020-08-23 16:27] VITALS: BP 151/85
--- NOTE | 2020-08-23 19:37 | ECGEPIP ---
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
--- NOTE | 2020-08-23 19:42 | ECGEPIP ---
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
== END 2020-08-23 17:48 | disposition home or self-care (01) ==
LOC: EDBD 09:53 → M ED 09:53
DX: R00.1 Bradycardia, unspecified (principal); R07.89 Other chest pain; I25.2 Old myocardial infarction; J44.9 Chronic obstructive pulmonary disease, unspecified; G47.30 Sleep apnea, unspecified; K22.70 Barrett's esophagus without dysplasia; Z86.73 Personal history of transient ischemic attack (TIA), and cerebral infarction without residual deficits; Z95.5 Presence of coronary angioplasty implant and graft; Z87.891 Personal history of nicotine dependence; Z79.899 Other long term (current) drug therapy

== ENCOUNTER 2020-10-31 15:43 | Emergency (ER) | payer MEDICARE ==
[~2020-10-31] VITALS: Ht 167.6 cm; Wt 90.9 kg
[2020-10-31 15:43] VITALS: BP 119/58
[~2020-10-31 15:43] MED LIST changes: +SUCR1SS PO
--- NOTE | 2020-10-31 17:32 | REP ---
INDICATION: right index finger trauma, slammed finger in car door COMPARISON: None. TECHNIQUE: AP, lateral, bilateral oblique views right 2nd digit. FINDINGS: The osseous structures and joint spaces are intact and normal. There is no evidence for acute fracture or dislocation. Surrounding soft tissues are unremarkable. No subcutaneous emphysema or radiodense foreign body. IMPRESSION: . No acute fracture or dislocation. <Electronically signed by Joe Crain > 10/31/20 [id number]
[2020-10-31] MEDS ORDERED: CEPH500C PO (17:57)
== END 2020-10-31 18:11 | disposition home or self-care (01) ==
LOC: M ED 15:43
DX: S69.91XA Unspecified injury of right wrist, hand and finger(s), initial encounter (principal); W22.8XXA Striking against or struck by other objects, initial encounter; Y92.009 Unspecified place in unspecified non-institutional (private) residence as the place of occurrence of the external cause; Y93.9 Activity, unspecified; Y99.9 Unspecified external cause status; Z79.899 Other long term (current) drug therapy

== ENCOUNTER 2020-11-20 17:26 | Emergency (ER) | payer MEDICARE ==
[~2020-11-20] VITALS: Ht 167.6 cm; Wt 80.5 kg
[~2020-11-20 17:26] MED LIST changes: +CEPH500C PO
[2020-11-20 17:27] VITALS: BP 122/68
[2020-11-20] MEDS ORDERED: CEPH500C PO (17:42)
== END 2020-11-20 18:25 | disposition home or self-care (01) ==
LOC: M ED 17:26
DX: L03.115 Cellulitis of right lower limb (principal); I25.10 Atherosclerotic heart disease of native coronary artery without angina pectoris; I50.9 Heart failure, unspecified; I25.2 Old myocardial infarction; I10 Essential (primary) hypertension; G47.30 Sleep apnea, unspecified; G20 Parkinson's disease; K22.70 Barrett's esophagus without dysplasia; G45.9 Transient cerebral ischemic attack, unspecified; Z79.899 Other long term (current) drug therapy

== ENCOUNTER → 2021-09-05 | Outpatient (REF) | payer MEDICARE, MEDICAID ==
[~2021-09-05] MED LIST changes: -LISI-898 PO; +LISI5TAB11 PO; +POTA-151 PO; -POTA20TA6 PO
[2021-09-05 17:04] LABS: FOLATE 1.2 NG/ML
== END ==
LOC: M LAB REF 16:22
PROVIDERS: ATTEND Family Medicine
DX: E53.9 Vitamin B deficiency, unspecified (principal); G62.9 Polyneuropathy, unspecified

== ENCOUNTER → 2021-11-27 | Outpatient (CLI) | payer MEDICAID, MEDICARE, OTHER ==
[~2021-11-27] MED LIST changes: +ASPI81TA26 PO; +BUPR-70 PO; -BUPR100T3 PO; +METO1TAB7 PO; +PLAV1TAB2 PO; +SERT-141 PO; +VITMTA PO
== END ==
LOC: M LABSMTC 10:47
PROVIDERS: ATTEND Anesthesiology
DX: Z01.818 Encounter for other preprocedural examination (principal); Z11.52 Encounter for screening for COVID-19

== ENCOUNTER 2021-12-01 07:35 | Day surgery (SDC) | payer MEDICAID, MEDICARE ==
[~2021-12-01] VITALS: Ht 167.6 cm; Wt 88.5 kg
[~2021-12-01 07:35] MED LIST changes: +NS 1,000 ML IV ONE; +propofoL 500 MG/50 ML VIAL As Ordered ONE
[2021-12-01 12:00] VITALS: BP 117/74
[2021-12-01] MEDS ORDERED: fentaNYL 100 MCG/2 ML INJECTION As Ordered ONE (12:23)
== END 2021-12-01 11:49 | disposition home or self-care (01) ==
LOC: M OPP 07:35
PROVIDERS: ATTEND Internal Medicine Gastroenterology
DX: K22.70 Barrett's esophagus without dysplasia (principal); K44.9 Diaphragmatic hernia without obstruction or gangrene; K91.89 Other postprocedural complications and disorders of digestive system; Z79.02 Long term (current) use of antithrombotics/antiplatelets; Z79.1 Long term (current) use of non-steroidal anti-inflammatories (NSAID); Z79.82 Long term (current) use of aspirin; Z79.899 Other long term (current) drug therapy; Z95.5 Presence of coronary angioplasty implant and graft; Z86.74 Personal history of sudden cardiac arrest; Z87.891 Personal history of nicotine dependence
CPT/HCPCS: 43239; 88305; J3010

== ENCOUNTER → 2022-04-25 | Outpatient (CLI) | payer MEDICARE ==
[~2022-04-25] MED LIST changes: +CLOP75TA99 PO; -NS 1,000 ML IV ONE; -PLAV1TAB2 PO; -propofoL 500 MG/50 ML VIAL As Ordered ONE
== END ==
LOC: M SOG 08:04
PROVIDERS: ATTEND Orthopaedic Surgery
DX: M25.511 Pain in right shoulder (principal); Z53.9 Procedure and treatment not carried out, unspecified reason

== ENCOUNTER → 2022-05-11 | Outpatient (CLI) | payer MEDICARE | LOC: M SOG 08:14 | PROVIDERS: ATTEND Orthopaedic Surgery | DX: M25.511 Pain in right shoulder (principal); Z53.9 Procedure and treatment not carried out, unspecified reason ==

== ENCOUNTER → 2022-06-01 | Outpatient (CLI) | payer MEDICARE | LOC: M SOG 08:04 | PROVIDERS: ATTEND Orthopaedic Surgery | DX: Z53.9 Procedure and treatment not carried out, unspecified reason (principal) ==

== ENCOUNTER → 2022-06-06 | Outpatient (CLI) | payer MEDICARE | LOC: M SOG 07:59 | PROVIDERS: ATTEND Orthopaedic Surgery | DX: M25.511 Pain in right shoulder (principal); Z53.9 Procedure and treatment not carried out, unspecified reason ==

== ENCOUNTER → 2022-06-19 | Outpatient (CLI) | payer MEDICARE | LOC: M SOG 08:11 | PROVIDERS: ATTEND Orthopaedic Surgery | DX: M25.511 Pain in right shoulder (principal) ==

== ENCOUNTER → 2022-09-04 | Outpatient (CLI) | payer MEDICARE | LOC: M RAD 11:16 | PROVIDERS: ATTEND Orthopaedic Surgery | DX: M25.511 Pain in right shoulder (principal); M75.91 Shoulder lesion, unspecified, right shoulder ==

== ENCOUNTER 2022-11-08 13:47 | Emergency (ER) | payer MEDICARE ==
[~2022-11-08] VITALS: Ht 167.6 cm; Wt 92.1 kg
[2022-11-08 14:48] LABS: BASO # 0.1 10^3/uL (0.0-0.2); BASO % 0.9 % (0.0-1.0); EOS # 0.3 10^3/uL (0.0-0.5); HEMATOCRIT 40.9 % (42.0-52.0); HEMOGLOBIN 13.4 g/dl (13.5-17.5); LYMPH # 1.9 10^3/uL (1.5-5.0); LYMPH % 32.6 % (24.0-44.0); MEAN CORPUSCULAR HEMOGLOBIN 28.9 pg (27.0-33.0); MEAN CORPUSCULAR HGB CONC 32.8 g/dl (32.0-36.5); MEAN CORPUSCULAR VOLUME 88.1 fl (80.0-96.0); MONO # 0.8 10^3/uL (0.0-0.8); MONO % 14.4 % (2.0-8.0); NEUTROPHILS # 2.7 10^3/uL (1.5-8.5); NEUTROPHILS % 46.8 % (36.0-66.0); PLATELET COUNT, AUTOMATED 233 10^3/uL (150-450); RED BLOOD COUNT 4.64 10^6/uL (4.30-6.10); WHITE BLOOD COUNT 5.9 10^3/uL (4.0-10.0)
[2022-11-08 15:08] LABS: INR 0.91; LIPASE 35 U/L (12-53); PARTIAL THROMBOPLASTIN TIME 32.4 SECONDS (24.8-34.2); PROTHROMBIN TIME 12.5 SECONDS (12.5-14.5)
[2022-11-08 15:09] LABS: CPK CREATINE PHOSPHOKINASE 225 U/L (46-171)
[2022-11-08 15:10] LABS: ALBUMIN 3.6 G/DL (3.2-5.2); ALKALINE PHOSPHATASE 107 U/L (46-116); ALT/SGPT 26 U/L (7.0-40); AST/SGOT 37 U/L (<34); BILIRUBIN,DIRECT 0.4 MG/DL (<0.4); BLOOD UREA NITROGEN 11 MG/DL (9-23); CALCIUM LEVEL 8.7 MG/DL (8.3-10.6); CARBON DIOXIDE LEVEL 28 MMOL/L (20-31); CHLORIDE LEVEL 107 MMOL/L (98-107); CK-MB VALUE MASS 2.6 NG/ML (<3.6); CREATININE FOR GFR 0.96 MG/DL (0.70-1.30); GLOMERULAR FILTRATION RATE > 60.0 (>49); GLUCOSE, FASTING 88 MG/DL (74-106); MB/CK RELATIVE INDEX 1.15 (< OR =4); POTASSIUM SERUM 3.8 MMOL/L (3.5-5.1); SODIUM LEVEL 140 MMOL/L (136-145); TOTAL PROTEIN 6.6 G/DL (5.7-8.2)
[2022-11-08] MEDS ORDERED: GI COCKTAIL 50ML BTL(HYOSCYAMINE/MAALOX/LIDOCAINE VISCOUS)(1:3:1) PO ONE (15:15)
[2022-11-08 17:41] LABS: CK-MB VALUE MASS 1.8 NG/ML (<3.6)
[2022-11-08 17:45] LABS: MB/CK RELATIVE INDEX 0.92 (< OR =4)
[2022-11-08] MEDS ORDERED: SUCR1TA PO (18:39)
[2022-11-08 18:46] VITALS: BP 128/78
== END 2022-11-08 18:58 | disposition home or self-care (01) ==
LOC: M ED 13:47
DX: R07.89 Other chest pain (principal); I25.10 Atherosclerotic heart disease of native coronary artery without angina pectoris; I50.9 Heart failure, unspecified; I25.2 Old myocardial infarction; I10 Essential (primary) hypertension; G20 Parkinson's disease; K22.70 Barrett's esophagus without dysplasia; Z86.73 Personal history of transient ischemic attack (TIA), and cerebral infarction without residual deficits; F17.200 Nicotine dependence, unspecified, uncomplicated; Z79.899 Other long term (current) drug therapy

== ENCOUNTER 2023-01-31 21:11 | Emergency (ER) | payer MEDICARE ==
[~2023-01-31] VITALS: Ht 167.6 cm; Wt 91.8 kg
[~2023-01-31 21:11] MED LIST changes: +SUCR1TA PO
[2023-02-01 01:35] VITALS: BP 135/72; TEMP 97.5; O2SAT 96
== END 2023-02-01 04:18 | disposition home or self-care (01) ==
LOC: M ED 21:11
DX: J44.9 Chronic obstructive pulmonary disease, unspecified (principal); G47.33 Obstructive sleep apnea (adult) (pediatric); I10 Essential (primary) hypertension; E78.5 Hyperlipidemia, unspecified; E03.9 Hypothyroidism, unspecified; K21.9 Gastro-esophageal reflux disease without esophagitis; F79 Unspecified intellectual disabilities; Z95.5 Presence of coronary angioplasty implant and graft; Z79.82 Long term (current) use of aspirin; Z79.899 Other long term (current) drug therapy

== ENCOUNTER → 2023-04-17 | Outpatient (CLI) | payer MEDICARE, MEDICAID ==
[2023-04-17 09:43] LABS: BASO # 0.1 10^3/uL (0.0-0.2); EOS # 0.4 10^3/uL (0.0-0.5); EOS % 5.7 % (0.0-3.0); HEMATOCRIT 45.5 % (42.0-52.0); HEMOGLOBIN 14.8 g/dl (13.5-17.5); LYMPH # 1.6 10^3/uL (1.5-5.0); LYMPH % 26.5 % (24.0-44.0); MEAN CORPUSCULAR HEMOGLOBIN 28.7 pg (27.0-33.0); MEAN CORPUSCULAR HGB CONC 32.5 g/dl (32.0-36.5); MEAN CORPUSCULAR VOLUME 88.3 fl (80.0-96.0); MONO # 0.6 10^3/uL (0.0-0.8); MONO % 9.2 % (2.0-8.0); NEUTROPHILS # 3.5 10^3/uL (1.5-8.5); NEUTROPHILS % 57.4 % (36.0-66.0); PLATELET COUNT, AUTOMATED 230 10^3/uL (150-450); RED BLOOD COUNT 5.15 10^6/uL (4.30-6.10); WHITE BLOOD COUNT 6.1 10^3/uL (4.0-10.0)
[2023-04-17 10:04] LABS: BLOOD UREA NITROGEN 10 MG/DL (9-23); CALCIUM LEVEL 9.1 MG/DL (8.3-10.6); CARBON DIOXIDE LEVEL 29 MMOL/L (20-31); CHLORIDE LEVEL 105 MMOL/L (98-107); CREATININE FOR GFR 1.21 MG/DL (0.70-1.30); GLOMERULAR FILTRATION RATE > 60.0 (>49); GLUCOSE, FASTING 97 MG/DL (74-106); POTASSIUM SERUM 4.4 MMOL/L (3.5-5.1); SODIUM LEVEL 139 MMOL/L (136-145)
== END ==
LOC: M LAB 09:05
PROVIDERS: ATTEND Physician Assistant
DX: I25.810 Atherosclerosis of coronary artery bypass graft(s) without angina pectoris (principal)

== ENCOUNTER 2023-05-26 11:06 | Emergency (ER) | payer MEDICARE, MEDICAID ==
[2023-05-26 11:16] VITALS: TEMP 97.8
[2023-05-26 11:41] LABS: BASO # 0.1 10^3/uL (0.0-0.2); BASO % 0.6 % (0.0-1.0); EOS # 0.3 10^3/uL (0.0-0.5); EOS % 3.7 % (0.0-3.0); HEMATOCRIT 41.4 % (42.0-52.0); HEMOGLOBIN 13.7 g/dl (13.5-17.5); LYMPH # 1.9 10^3/uL (1.5-5.0); LYMPH % 24.2 % (24.0-44.0); MEAN CORPUSCULAR HEMOGLOBIN 28.8 pg (27.0-33.0); MEAN CORPUSCULAR HGB CONC 33.1 g/dl (32.0-36.5); MONO # 0.6 10^3/uL (0.0-0.8); MONO % 8.1 % (2.0-8.0); NEUTROPHILS # 4.9 10^3/uL (1.5-8.5); NEUTROPHILS % 63.3 % (36.0-66.0); PLATELET COUNT, AUTOMATED 231 10^3/uL (150-450); RED BLOOD COUNT 4.76 10^6/uL (4.30-6.10); WHITE BLOOD COUNT 7.7 10^3/uL (4.0-10.0)
[2023-05-26 12:05] LABS: BLOOD UREA NITROGEN 18 MG/DL (9-23); CALCIUM LEVEL 8.6 MG/DL (8.3-10.6); CARBON DIOXIDE LEVEL 26 MMOL/L (20-31); CHLORIDE LEVEL 106 MMOL/L (98-107); CK-MB VALUE MASS < 1.0 NG/ML (<3.6); CPK CREATINE PHOSPHOKINASE 104 U/L (46-171); CREATININE FOR GFR 0.95 MG/DL (0.70-1.30); GLOMERULAR FILTRATION RATE > 60.0 (>49); GLUCOSE, FASTING 102 MG/DL (74-106); MB/CK RELATIVE INDEX 0.96 (< OR =4); SODIUM LEVEL 139 MMOL/L (136-145)
[2023-05-26 13:07] LABS: CK-MB VALUE MASS < 1.0 NG/ML (<3.6)
[2023-05-26 13:08] LABS: CPK CREATINE PHOSPHOKINASE 90 U/L (46-171); MB/CK RELATIVE INDEX 1.11 (< OR =4)
[2023-05-26 13:30] VITALS: BP 137/66
[2023-05-26 13:36] VITALS: O2SAT 96
== END 2023-05-26 13:43 | disposition home or self-care (01) ==
LOC: EDBD 11:06 → M ED 11:06
DX: R07.9 Chest pain, unspecified (principal); I45.10 Unspecified right bundle-branch block; E78.5 Hyperlipidemia, unspecified; I10 Essential (primary) hypertension; I25.2 Old myocardial infarction; F41.9 Anxiety disorder, unspecified; K44.9 Diaphragmatic hernia without obstruction or gangrene; Z79.82 Long term (current) use of aspirin; Z79.02 Long term (current) use of antithrombotics/antiplatelets; Z79.810 Long term (current) use of selective estrogen receptor modulators (SERMs); Z79.811 Long term (current) use of aromatase inhibitors; Z79.899 Other long term (current) drug therapy

== ENCOUNTER → 2023-05-30 | Outpatient (CLI) | payer MEDICARE, MEDICAID | LOC: M RAD 12:41 | PROVIDERS: ATTEND Nurse Practitioner Adult Health | DX: Z12.2 Encounter for screening for malignant neoplasm of respiratory organs (principal); Z87.891 Personal history of nicotine dependence ==

== ENCOUNTER 2023-06-22 09:03 | Emergency (ER) | payer MEDICARE, MEDICAID ==
[~2023-06-22] VITALS: Ht 167.6 cm; Wt 90.9 kg
[2023-06-22] MEDS ORDERED: NS 500 ML IV ONE (09:30)
[2023-06-22] MEDS ORDERED: NITROGLYCERIN 0.4MG SUBL TABLET SL STA (09:30)
[2023-06-22 09:42] VITALS: BP 127/68
[2023-06-22 09:49] LABS: BASO # 0.1 10^3/uL (0.0-0.2); BASO % 0.4 % (0.0-1.0); EOS # 0.2 10^3/uL (0.0-0.5); EOS % 1.5 % (0.0-3.0); HEMOGLOBIN 14.9 g/dl (13.5-17.5); LYMPH # 1.2 10^3/uL (1.5-5.0); MEAN CORPUSCULAR HEMOGLOBIN 28.8 pg (27.0-33.0); MEAN CORPUSCULAR HGB CONC 33.1 g/dl (32.0-36.5); MONO # 1.4 10^3/uL (0.0-0.8); MONO % 10.5 % (2.0-8.0); NEUTROPHILS # 10.2 10^3/uL (1.5-8.5); NEUTROPHILS % 78.4 % (36.0-66.0); PLATELET COUNT, AUTOMATED 223 10^3/uL (150-450); RED BLOOD COUNT 5.17 10^6/uL (4.30-6.10)
[2023-06-22 10:00] LABS: INR 1.04; PROTHROMBIN TIME 13.3 SECONDS (12.5-14.5)
[2023-06-22 10:01] LABS: PARTIAL THROMBOPLASTIN TIME 34.9 SECONDS (24.8-34.2)
[2023-06-22 10:15] LABS: LIPASE 30 U/L (12-53)
[2023-06-22 10:17] LABS: ALKALINE PHOSPHATASE 147 U/L (46-116); ALT/SGPT 26 U/L (7.0-40); AST/SGOT 26 U/L (<34); BILIRUBIN,DIRECT 0.4 MG/DL (<0.4); BILIRUBIN,TOTAL 1.1 MG/DL (0.3-1.2); BLOOD UREA NITROGEN 14 MG/DL (9-23); CARBON DIOXIDE LEVEL 29 MMOL/L (20-31); CHLORIDE LEVEL 105 MMOL/L (98-107); CREATININE FOR GFR 0.96 MG/DL (0.70-1.30); GLOMERULAR FILTRATION RATE > 60.0 (>49); GLUCOSE, FASTING 88 MG/DL (74-106); SODIUM LEVEL 138 MMOL/L (136-145); TOTAL PROTEIN 7.1 G/DL (5.7-8.2)
[2023-06-22 10:19] LABS: RSV AMPLIFICATION NEGATIVE (NEGATIVE)
[2023-06-22 10:21] LABS: CK-MB VALUE MASS < 1.0 NG/ML (<3.6)
[2023-06-22 10:24] LABS: FREE T4 1.33 NG/DL (0.89-1.76)
[2023-06-22 10:27] LABS: CPK CREATINE PHOSPHOKINASE 103 U/L (46-171); MB/CK RELATIVE INDEX 0.97 (< OR =4)
[2023-06-22] MEDS ORDERED: fentaNYL 100 MCG/2 ML INJECTION IV PRN (10:30)
[2023-06-22] MEDS ORDERED: ISOVUE-370 76% 100ML VIAL As Ordered ONE (10:54)
[2023-06-22 11:19] LABS: CK-MB VALUE MASS < 1.0 NG/ML (<3.6)
[2023-06-22 11:27] LABS: CPK CREATINE PHOSPHOKINASE 90 U/L (46-171); MB/CK RELATIVE INDEX 1.11 (< OR =4)
[2023-06-22 13:21] LABS: CK-MB VALUE MASS < 1.0 NG/ML (<3.6)
[2023-06-22 13:23] LABS: CPK CREATINE PHOSPHOKINASE 75 U/L (46-171); MB/CK RELATIVE INDEX 1.33 (< OR =4)
[2023-06-22 14:32] VITALS: BP 123/62; TEMP 97.6; O2SAT 96
== END 2023-06-22 14:40 | disposition home or self-care (01) ==
LOC: M ED 09:03 → EDBD 09:03 → M ED 14:40
DX: R07.9 Chest pain, unspecified (principal); I45.10 Unspecified right bundle-branch block; I25.42 Coronary artery dissection; I25.2 Old myocardial infarction; I10 Essential (primary) hypertension; E78.5 Hyperlipidemia, unspecified; Z87.891 Personal history of nicotine dependence; Z79.899 Other long term (current) drug therapy; Z79.810 Long term (current) use of selective estrogen receptor modulators (SERMs); Z79.83 Long term (current) use of bisphosphonates
CPT/HCPCS: 71045; 71275; 74177; 80047; 80048; 80076; 82550; 82553; 83690; 84439; 84443; 84484; 85025; 85610; 85730; 87040; 87631; 93005; 93041; 94760; 96374; 99285; J3010; Q9967

== ENCOUNTER → 2023-07-07 | Outpatient (CLI) | payer MEDICAID, MEDICARE | LOC: M SLEEP 20:00 | PROVIDERS: ATTEND Nurse Practitioner Adult Health | DX: G47.33 Obstructive sleep apnea (adult) (pediatric) (principal) ==

== ENCOUNTER → 2023-08-02 | Outpatient (CLI) | payer MEDICARE ==
[2023-08-02 09:55] LABS: BASO % 0.6 % (0.0-1.0); EOS # 0.3 10^3/uL (0.0-0.5); EOS % 4.8 % (0.0-3.0); HEMATOCRIT 44.5 % (42.0-52.0); HEMOGLOBIN 14.7 g/dl (13.5-17.5); LYMPH # 1.6 10^3/uL (1.5-5.0); LYMPH % 26.5 % (24.0-44.0); MEAN CORPUSCULAR HEMOGLOBIN 28.6 pg (27.0-33.0); MEAN CORPUSCULAR VOLUME 86.6 fl (80.0-96.0); MONO # 0.6 10^3/uL (0.0-0.8); MONO % 9.2 % (2.0-8.0); NEUTROPHILS # 3.6 10^3/uL (1.5-8.5); NEUTROPHILS % 58.7 % (36.0-66.0); PLATELET COUNT, AUTOMATED 311 10^3/uL (150-450); RED BLOOD COUNT 5.14 10^6/uL (4.30-6.10); WHITE BLOOD COUNT 6.2 10^3/uL (4.0-10.0)
[2023-08-02 10:16] LABS: BLOOD UREA NITROGEN 12 MG/DL (9-23); CALCIUM LEVEL 9.2 MG/DL (8.3-10.6); CARBON DIOXIDE LEVEL 29 MMOL/L (20-31); CHLORIDE LEVEL 106 MMOL/L (98-107); CREATININE FOR GFR 1.01 MG/DL (0.70-1.30); GLOMERULAR FILTRATION RATE > 60.0 (>49); GLUCOSE, FASTING 105 MG/DL (74-106); POTASSIUM SERUM 4.1 MMOL/L (3.5-5.1); SODIUM LEVEL 140 MMOL/L (136-145)
== END ==
LOC: M LAB 08:29
PROVIDERS: ATTEND Physician Assistant
DX: I25.810 Atherosclerosis of coronary artery bypass graft(s) without angina pectoris (principal); I50.32 Chronic diastolic (congestive) heart failure

== ENCOUNTER → 2023-09-27 | Outpatient (REF) | payer MEDICARE, MEDICAID, OTHER ==
[2023-09-27 19:03] LABS: HEMOGLOBIN A1c 5.8 % (4.0-6.0)
[2023-09-27 19:09] LABS: ALBUMIN 4.2 G/DL (3.2-5.2); ALKALINE PHOSPHATASE 151 U/L (46-116); ALT/SGPT 23 U/L (7.0-40); AST/SGOT 38 U/L (<34); BLOOD UREA NITROGEN 12 MG/DL (9-23); CALCIUM LEVEL 9.6 MG/DL (8.3-10.6); CARBON DIOXIDE LEVEL 29 MMOL/L (20-31); CHLORIDE LEVEL 102 MMOL/L (98-107); CHOLESTEROL LEVEL 231 MG/DL (<200); CHOLESTEROL RISK RATIO 4.85 (<5); CREATININE FOR GFR 1.23 MG/DL (0.70-1.30); GLOMERULAR FILTRATION RATE > 60.0 (>49); GLUCOSE, FASTING 80 MG/DL (74-106); HDL CHOLESTEROL 47.6 MG/DL (>40); LDL CHOLESTEROL 136.8 MG/DL (<100); NON-HDL-C 183.4 MG/DL; POTASSIUM SERUM 4.2 MMOL/L (3.5-5.1); SODIUM LEVEL 141 MMOL/L (136-145); THYROID STIMULATING HORMONE 99.332 uIU/ML (0.55-4.78); TOTAL PROTEIN 7.6 G/DL (5.7-8.2); TRIGLYCERIDES LEVEL 233 MG/DL (<150)
[2023-09-27 19:10] LABS: TOTAL 25(OH) VITAMIN D 17.4 NG/ML (20.0-100.0)
[2023-09-27 20:02] LABS: HIV 1&2 SCREEN NEGATIVE (NEGATIVE)
[2023-09-27 20:10] LABS: HEPATITIS C VIRUS ABY INDEX 0.04 INDEX (<0.8)
== END ==
LOC: M LAB REF 16:32
PROVIDERS: ATTEND Physician Assistant
DX: E66.9 Obesity, unspecified (principal); E55.9 Vitamin D deficiency, unspecified; Z79.899 Other long term (current) drug therapy; Z11.3 Encounter for screening for infections with a predominantly sexual mode of transmission; Z72.89 Other problems related to lifestyle

== ENCOUNTER → 2023-10-02 | Outpatient (REF) | payer MEDICARE, MEDICAID, OTHER ==
[2023-10-02 19:25] LABS: Trichomonas vaginalis (AMP) NOT DETECTED (NEGATIVE)
[2023-10-02 19:49] LABS: GC DNA AMPLIFICATION NEGATIVE (NEGATIVE)
== END ==
LOC: M LAB REF 17:55
PROVIDERS: ATTEND Physician Assistant
DX: Z11.3 Encounter for screening for infections with a predominantly sexual mode of transmission (principal); Z72.89 Other problems related to lifestyle

== ENCOUNTER → 2023-11-21 | Outpatient (REF) | payer MEDICARE, MEDICAID, OTHER ==
[~2023-11-21] MED LIST changes: +ESOM1CAP20 PO; -ESOM1CAP5 PO
[2023-11-21 19:47] LABS: VITAMIN B12 LEVEL 532 PG/ML (211-911)
[2023-11-21 19:48] LABS: BLOOD UREA NITROGEN 11 MG/DL (9-23); CALCIUM LEVEL 9.4 MG/DL (8.3-10.6); CARBON DIOXIDE LEVEL 29 MMOL/L (20-31); CHLORIDE LEVEL 102 MMOL/L (98-107); CREATININE FOR GFR 1.13 MG/DL (0.70-1.30); GLOMERULAR FILTRATION RATE > 60.0 (>42); GLUCOSE, FASTING 93 MG/DL (74-106); POTASSIUM SERUM 3.9 MMOL/L (3.5-5.1); SODIUM LEVEL 139 MMOL/L (136-145)
== END ==
LOC: M LAB REF 17:44
PROVIDERS: ATTEND Physician Assistant
DX: R25.2 Cramp and spasm (principal)

== ENCOUNTER 2024-01-12 19:31 | Emergency (ER) | payer MEDICAID, MEDICARE, OTHER ==
[~2024-01-12] VITALS: Ht 167.6 cm; Wt 77.2 kg
[2024-01-12 20:04] LABS: BASO # 0.1 10^3/uL (0.0-0.2); BASO % 0.8 % (0.0-1.0); EOS # 0.3 10^3/uL (0.0-0.5); EOS % 4.4 % (0.0-3.0); HEMATOCRIT 43.2 % (42.0-52.0); HEMOGLOBIN 14.2 g/dl (13.5-17.5); LYMPH # 1.9 10^3/uL (1.5-5.0); LYMPH % 28.8 % (24.0-44.0); MEAN CORPUSCULAR HEMOGLOBIN 28.9 pg (27.0-33.0); MEAN CORPUSCULAR HGB CONC 32.9 g/dl (32.0-36.5); MONO # 0.5 10^3/uL (0.0-0.8); NEUTROPHILS # 3.8 10^3/uL (1.5-8.5); NEUTROPHILS % 58.8 % (36.0-66.0); PLATELET COUNT, AUTOMATED 204 10^3/uL (150-450); RED BLOOD COUNT 4.91 10^6/uL (4.30-6.10); WHITE BLOOD COUNT 6.4 10^3/uL (4.0-10.0)
[2024-01-12 21:59] LABS: CK-MB VALUE MASS 2.4 NG/ML (<3.6)
[2024-01-12 22:01] LABS: MB/CK RELATIVE INDEX 1.5 (< OR =4)
[2024-01-12 23:30] VITALS: BP 154/76
[2024-01-12] MEDS: NITROGLYCERIN 0.4MG SUBL TABLET SL STA (23:30)
[2024-01-13 00:14] LABS: ALBUMIN 3.6 G/DL (3.2-5.2); ALKALINE PHOSPHATASE 110 U/L (46-116); ALT/SGPT 17 U/L (7.0-40); AST/SGOT 21 U/L (<34); BILIRUBIN,DIRECT 0.2 MG/DL (<0.4); BILIRUBIN,TOTAL 0.7 MG/DL (0.3-1.2); BLOOD UREA NITROGEN 11 MG/DL (9-23); CALCIUM LEVEL 8.7 MG/DL (8.3-10.6); CARBON DIOXIDE LEVEL 27 MMOL/L (20-31); CHLORIDE LEVEL 109 MMOL/L (98-107); CK-MB VALUE MASS 3.1 NG/ML (<3.6); CREATININE FOR GFR 0.99 MG/DL (0.70-1.30); GLOMERULAR FILTRATION RATE > 60.0 (>42); GLUCOSE, FASTING 97 MG/DL (74-106); POTASSIUM SERUM 4.1 MMOL/L (3.5-5.1); SODIUM LEVEL 141 MMOL/L (136-145); TOTAL PROTEIN 6.4 G/DL (5.7-8.2)
[2024-01-13 00:16] LABS: CPK CREATINE PHOSPHOKINASE 156 U/L (46-171); MB/CK RELATIVE INDEX 1.98 (< OR =4)
[2024-01-13] MEDS ORDERED: ISOVUE-370 76% 100ML VIAL As Ordered ONE (00:25)
[2024-01-13 01:31] LABS: CK-MB VALUE MASS 3.8 NG/ML (<3.6)
[2024-01-13 01:32] LABS: MB/CK RELATIVE INDEX 2.71 (< OR =4)
[2024-01-13] MEDS ORDERED: HEPARIN SOD (PORCINE) 5000UNITS/ML 1ML VIAL/SYRINGE IV PRN (01:45)
[2024-01-13 02:11] LABS: HEMATOCRIT 40.8 % (42.0-52.0); HEMOGLOBIN 13.3 g/dl (13.5-17.5); MEAN CORPUSCULAR HEMOGLOBIN 28.5 pg (27.0-33.0); MEAN CORPUSCULAR HGB CONC 32.6 g/dl (32.0-36.5); MEAN CORPUSCULAR VOLUME 87.4 fl (80.0-96.0); PLATELET COUNT, AUTOMATED 204 10^3/uL (150-450); RED BLOOD COUNT 4.67 10^6/uL (4.30-6.10); WHITE BLOOD COUNT 7.7 10^3/uL (4.0-10.0)
[2024-01-13] MEDS: HEPARIN DRIP 25,000 UNITS in IV 1 EA IV SCH (02:25)
[2024-01-13 07:09] VITALS: BP 163/74; TEMP 96.3; O2SAT 96
== END 2024-01-13 07:12 | disposition short-term general hospital (02) ==
LOC: M ED 19:31
DX: I21.4 Non-ST elevation (NSTEMI) myocardial infarction (principal); K44.9 Diaphragmatic hernia without obstruction or gangrene; I11.9 Hypertensive heart disease without heart failure; E78.5 Hyperlipidemia, unspecified; I25.10 Atherosclerotic heart disease of native coronary artery without angina pectoris; Z95.1 Presence of aortocoronary bypass graft; Z79.82 Long term (current) use of aspirin; Z79.899 Other long term (current) drug therapy
CPT/HCPCS: 71045; 71275; 80053; 80076; 82550; 82553; 83880; 84484; 85025; 85027; 85730; 93005; 93041; 94760; 96374; 99285; Q9967

== ENCOUNTER → 2024-01-22 | Outpatient (CLI) | payer MEDICARE | LOC: M LAB 14:30 | PROVIDERS: ATTEND Internal Medicine Cardiovascular Disease | DX: R79.89 Other specified abnormal findings of blood chemistry (principal) ==

== ENCOUNTER → 2024-02-05 | Outpatient (CLI) | payer MEDICARE ==
[2024-02-05 09:13] LABS: CHOLESTEROL RISK RATIO 3.22 (<5); HDL CHOLESTEROL 41.6 MG/DL (>40); LDL CHOLESTEROL 73.8 MG/DL (<100); NON-HDL-C 92.4 MG/DL
== END ==
LOC: M LAB 08:16
PROVIDERS: ATTEND Nurse Practitioner Acute Care
DX: E78.5 Hyperlipidemia, unspecified (principal); I25.810 Atherosclerosis of coronary artery bypass graft(s) without angina pectoris

== ENCOUNTER 2024-02-12 15:45 | Emergency (ER) | payer MEDICARE ==
[~2024-02-12] VITALS: Ht 167.6 cm; Wt 91.8 kg
[2024-02-12] MEDS: NS 500 ML IV ONE (16:19)
[2024-02-12 16:25] LABS: BASO % 0.6 % (0.0-1.0); EOS # 0.1 10^3/uL (0.0-0.5); HEMATOCRIT 42.9 % (42.0-52.0); LYMPH # 0.8 10^3/uL (1.5-5.0); LYMPH % 11.8 % (24.0-44.0); MEAN CORPUSCULAR HEMOGLOBIN 28.2 pg (27.0-33.0); MEAN CORPUSCULAR HGB CONC 32.6 g/dl (32.0-36.5); MEAN CORPUSCULAR VOLUME 86.3 fl (80.0-96.0); MONO % 14.2 % (2.0-8.0); NEUTROPHILS # 4.8 10^3/uL (1.5-8.5); NEUTROPHILS % 72.3 % (36.0-66.0); PLATELET COUNT, AUTOMATED 182 10^3/uL (150-450); RED BLOOD COUNT 4.97 10^6/uL (4.30-6.10); WHITE BLOOD COUNT 6.7 10^3/uL (4.0-10.0)
[2024-02-12 16:53] LABS: ALBUMIN 3.7 G/DL (3.2-5.2); ALKALINE PHOSPHATASE 124 U/L (46-116); ALT/SGPT 13 U/L (7.0-40); AST/SGOT 20 U/L (<34); BILIRUBIN,TOTAL 1.8 MG/DL (0.3-1.2); BLOOD UREA NITROGEN 12 MG/DL (9-23); CARBON DIOXIDE LEVEL 29 MMOL/L (20-31); CHLORIDE LEVEL 105 MMOL/L (98-107); CREATININE FOR GFR 1.21 MG/DL (0.70-1.30); GLOMERULAR FILTRATION RATE > 60.0 (>42); GLUCOSE, FASTING 101 MG/DL (74-106); POTASSIUM SERUM 3.7 MMOL/L (3.5-5.1); SODIUM LEVEL 139 MMOL/L (136-145); TOTAL PROTEIN 6.7 G/DL (5.7-8.2)
[2024-02-12] MEDS ORDERED: MOLN200C PO (18:02)
[2024-02-12 19:20] VITALS: BP 122/64; TEMP 100.9; O2SAT 97
== END 2024-02-12 19:28 | disposition home or self-care (01) ==
LOC: M ED 15:45 → EDBD 15:45 → M ED 19:28
DX: U07.1 COVID-19 (principal); I25.10 Atherosclerotic heart disease of native coronary artery without angina pectoris; I10 Essential (primary) hypertension; E78.5 Hyperlipidemia, unspecified; Z79.899 Other long term (current) drug therapy; Z79.82 Long term (current) use of aspirin

== ENCOUNTER → 2024-02-18 | Outpatient (REF) | payer MEDICARE, OTHER ==
[~2024-02-18] MED LIST changes: +MOLN200C PO
[2024-02-18 18:16] LABS: ALBUMIN 3.5 G/DL (3.2-5.2); ALKALINE PHOSPHATASE 127 U/L (46-116); ALT/SGPT 16 U/L (7.0-40); AST/SGOT 26 U/L (<34); BILIRUBIN,TOTAL 0.8 MG/DL (0.3-1.2); BLOOD UREA NITROGEN 11 MG/DL (9-23); CALCIUM LEVEL 9.3 MG/DL (8.3-10.6); CARBON DIOXIDE LEVEL 31 MMOL/L (20-31); CHLORIDE LEVEL 107 MMOL/L (98-107); CREATININE FOR GFR 0.96 MG/DL (0.70-1.30); GLOMERULAR FILTRATION RATE > 60.0 (>42); GLUCOSE, FASTING 87 MG/DL (74-106); POTASSIUM SERUM 4.2 MMOL/L (3.5-5.1); SODIUM LEVEL 143 MMOL/L (136-145); TOTAL PROTEIN 6.6 G/DL (5.7-8.2)
== END ==
LOC: M LAB REF 16:41
PROVIDERS: ATTEND Physician Assistant
DX: U07.1 COVID-19 (principal)

== ENCOUNTER → 2024-03-04 | Outpatient (CLI) | payer MEDICARE, MEDICAID | LOC: M SLEEP 20:00 | PROVIDERS: ATTEND Nurse Practitioner Adult Health | DX: G47.33 Obstructive sleep apnea (adult) (pediatric) (principal) ==

== ENCOUNTER 2024-03-16 18:23 | Emergency (ER) | payer MEDICAID, MEDICARE, OTHER ==
[~2024-03-16] VITALS: Ht 167.6 cm; Wt 90.3 kg
[2024-03-16 19:34] LABS: BASO % 0.5 % (0.0-1.0); EOS # 0.2 10^3/uL (0.0-0.5); EOS % 2.9 % (0.0-3.0); HEMATOCRIT 43.7 % (42.0-52.0); HEMOGLOBIN 14.3 g/dl (13.5-17.5); LYMPH # 1.5 10^3/uL (1.5-5.0); LYMPH % 18.9 % (24.0-44.0); MEAN CORPUSCULAR HEMOGLOBIN 28.2 pg (27.0-33.0); MEAN CORPUSCULAR HGB CONC 32.7 g/dl (32.0-36.5); MEAN CORPUSCULAR VOLUME 86.2 fl (80.0-96.0); MONO # 0.9 10^3/uL (0.0-0.8); MONO % 11.9 % (2.0-8.0); NEUTROPHILS # 5.1 10^3/uL (1.5-8.5); NEUTROPHILS % 65.5 % (36.0-66.0); PLATELET COUNT, AUTOMATED 200 10^3/uL (150-450); RED BLOOD COUNT 5.07 10^6/uL (4.30-6.10); WHITE BLOOD COUNT 7.8 10^3/uL (4.0-10.0)
[2024-03-16 19:47] LABS: INR 1.05; PARTIAL THROMBOPLASTIN TIME 34.9 SECONDS (24.8-34.2); PROTHROMBIN TIME 13.4 SECONDS (12.5-14.5)
[2024-03-16 21:26] LABS: CK-MB VALUE MASS 1.3 NG/ML (<3.6); LIPASE 37 U/L (12-53)
[2024-03-16 21:30] LABS: FREE T4 1.31 NG/DL (0.89-1.76)
[2024-03-16 21:31] LABS: THYROID STIMULATING HORMONE 0.075 uIU/ML (0.55-4.78)
[2024-03-16 21:37] LABS: ALBUMIN 3.4 G/DL (3.2-5.2); ALKALINE PHOSPHATASE 130 U/L (46-116); ALT/SGPT 14 U/L (7.0-40); AST/SGOT 18 U/L (<34); BILIRUBIN,DIRECT 0.2 MG/DL (<0.4); BILIRUBIN,TOTAL 0.6 MG/DL (0.3-1.2); BLOOD UREA NITROGEN 13 MG/DL (9-23); CALCIUM LEVEL 9.2 MG/DL (8.3-10.6); CARBON DIOXIDE LEVEL 29 MMOL/L (20-31); CHLORIDE LEVEL 107 MMOL/L (98-107); CPK CREATINE PHOSPHOKINASE 115 U/L (46-171); CREATININE FOR GFR 0.91 MG/DL (0.70-1.30); GLOMERULAR FILTRATION RATE > 60.0 (>42); GLUCOSE, FASTING 94 MG/DL (74-106); MB/CK RELATIVE INDEX 1.13 (< OR =4); POTASSIUM SERUM 4.2 MMOL/L (3.5-5.1); SODIUM LEVEL 142 MMOL/L (136-145); TOTAL PROTEIN 6.6 G/DL (5.7-8.2)
[2024-03-16 22:26] LABS: CK-MB VALUE MASS 1.4 NG/ML (<3.6)
[2024-03-16 22:27] LABS: MB/CK RELATIVE INDEX 1.29 (< OR =4)
[2024-03-16] MEDS ORDERED: NITROGLYCERIN 0.4MG SUBL TABLET SL PRN (22:30)
[2024-03-16] MEDS: KETOROLAC 30 MG/ML 1ML VIAL IV ONE (22:36)
[2024-03-17 00:29] LABS: CK-MB VALUE MASS 1.5 NG/ML (<3.6); MB/CK RELATIVE INDEX 1.41 (< OR =4)
[2024-03-17] MEDS ORDERED: HEPARIN SOD (PORCINE) 5000UNITS/ML 1ML VIAL/SYRINGE IV PRN (00:55)
[2024-03-17] MEDS: HEPARIN SOD (PORCINE) 5000UNITS/ML 1ML VIAL/SYRINGE IV ONE (01:19)
[2024-03-17] MEDS: HEPARIN DRIP 25,000 UNITS in IV 1 EA IV SCH (01:21)
[2024-03-17 06:30] VITALS: BP 160/72; TEMP 96.4; O2SAT 98
[2024-03-17] MEDS: ASPIRIN 325 MG TAB PO ONE (06:48)
== END 2024-03-17 07:01 | disposition short-term general hospital (02) ==
LOC: EDBD 18:23 → M ED 18:23
DX: I21.4 Non-ST elevation (NSTEMI) myocardial infarction (principal); I25.10 Atherosclerotic heart disease of native coronary artery without angina pectoris; I10 Essential (primary) hypertension; Z86.73 Personal history of transient ischemic attack (TIA), and cerebral infarction without residual deficits; K21.9 Gastro-esophageal reflux disease without esophagitis; F32.A Depression, unspecified; F43.10 Post-traumatic stress disorder, unspecified; G20.C Parkinsonism, unspecified; Z95.5 Presence of coronary angioplasty implant and graft; Z95.1 Presence of aortocoronary bypass graft; Z79.82 Long term (current) use of aspirin; Z79.899 Other long term (current) drug therapy
CPT/HCPCS: 71046; 80048; 80076; 82550; 82553; 83690; 83880; 84439; 84443; 84484; 85025; 85610; 85730; 87486; 87581; 87633; 87798; 93005; 93041; 93971; 94760; 96374; 96375; 99285; J1885

== ENCOUNTER 2024-05-25 16:39 | Emergency (ER) | payer MEDICARE ==
[~2024-05-25] VITALS: Ht 167.6 cm; Wt 90.5 kg
[2024-05-25 16:56] VITALS: TEMP 98.9
[2024-05-25 17:45] LABS: BASO # 0.1 10^3/uL (0.0-0.2); BASO % 0.7 % (0.0-1.0); EOS # 0.3 10^3/uL (0.0-0.5); EOS % 3.6 % (0.0-3.0); HEMATOCRIT 42.7 % (42.0-52.0); HEMOGLOBIN 13.9 g/dl (13.5-17.5); LYMPH # 1.4 10^3/uL (1.5-5.0); LYMPH % 18.9 % (24.0-44.0); MEAN CORPUSCULAR HEMOGLOBIN 27.9 pg (27.0-33.0); MEAN CORPUSCULAR HGB CONC 32.6 g/dl (32.0-36.5); MEAN CORPUSCULAR VOLUME 85.6 fl (80.0-96.0); MONO # 0.6 10^3/uL (0.0-0.8); MONO % 8.9 % (2.0-8.0); NEUTROPHILS # 4.8 10^3/uL (1.5-8.5); NEUTROPHILS % 67.6 % (36.0-66.0); PLATELET COUNT, AUTOMATED 240 10^3/uL (150-450); RED BLOOD COUNT 4.99 10^6/uL (4.30-6.10); WHITE BLOOD COUNT 7.2 10^3/uL (4.0-10.0)
[2024-05-25 17:54] LABS: BLOOD UREA NITROGEN 12 MG/DL (9-23); CALCIUM LEVEL 9.6 MG/DL (8.3-10.6); CARBON DIOXIDE LEVEL 31 MMOL/L (20-31); CHLORIDE LEVEL 104 MMOL/L (98-107); CPK CREATINE PHOSPHOKINASE 152 U/L (46-171); GLOMERULAR FILTRATION RATE > 60.0 (>42); GLUCOSE, FASTING 150 MG/DL (74-106); MB/CK RELATIVE INDEX 1.31 (< OR =4); POTASSIUM SERUM 3.8 MMOL/L (3.5-5.1); SODIUM LEVEL 140 MMOL/L (136-145)
[2024-05-25 19:32] LABS: CK-MB VALUE MASS 3.4 NG/ML (<3.6)
[2024-05-25 19:35] LABS: MB/CK RELATIVE INDEX 2.13 (< OR =4)
[2024-05-25] MEDS: NITROGLYCERIN 0.4MG SUBL TABLET SL PRN (20:19)
[2024-05-25 20:30] VITALS: BP 133/73
[2024-05-25] MEDS: MORPHINE 4 MG/ML 1ML VIAL IV PRN (20:45)
[2024-05-25 22:08] LABS: CK-MB VALUE MASS 8.2 NG/ML (<3.6)
[2024-05-25 22:10] LABS: MB/CK RELATIVE INDEX 4.85 (< OR =4)
[2024-05-25] MEDS ORDERED: HEPARIN SOD (PORCINE) 5000UNITS/ML 1ML VIAL/SYRINGE IV PRN (22:30)
[2024-05-25] MEDS: HEPARIN DRIP 25,000 UNITS in IV 1 EA IV SCH (23:19)
[2024-05-25 23:30] VITALS: BP 149/55; O2SAT 96
[2024-05-25 23:35] LABS: HEMATOCRIT 42.1 % (42.0-52.0); MEAN CORPUSCULAR HEMOGLOBIN 28.1 pg (27.0-33.0); MEAN CORPUSCULAR HGB CONC 33.3 g/dl (32.0-36.5); MEAN CORPUSCULAR VOLUME 84.4 fl (80.0-96.0); PLATELET COUNT, AUTOMATED 239 10^3/uL (150-450); RED BLOOD COUNT 4.99 10^6/uL (4.30-6.10); WHITE BLOOD COUNT 7.8 10^3/uL (4.0-10.0)
== END 2024-05-25 23:45 | disposition short-term general hospital (02) ==
LOC: M ED 16:39
DX: I21.4 Non-ST elevation (NSTEMI) myocardial infarction (principal); R91.8 Other nonspecific abnormal finding of lung field; I48.91 Unspecified atrial fibrillation; I25.10 Atherosclerotic heart disease of native coronary artery without angina pectoris; I25.2 Old myocardial infarction; I10 Essential (primary) hypertension; E78.5 Hyperlipidemia, unspecified; G20.C Parkinsonism, unspecified; K21.9 Gastro-esophageal reflux disease without esophagitis; F39 Unspecified mood [affective] disorder; Z95.1 Presence of aortocoronary bypass graft; Z98.61 Coronary angioplasty status; Z79.01 Long term (current) use of anticoagulants; Z79.82 Long term (current) use of aspirin; Z79.899 Other long term (current) drug therapy

== ENCOUNTER 2024-05-30 23:20 | Emergency (ER) | payer MEDICARE ==
[~2024-05-30] VITALS: Ht 167.6 cm; Wt 90.5 kg
[2024-05-30 23:55] VITALS: BP 117/59
[2024-05-31 00:25] LABS: BASO # 0.1 10^3/uL (0.0-0.2); BASO % 0.5 % (0.0-1.0); EOS # 0.4 10^3/uL (0.0-0.5); EOS % 3.8 % (0.0-3.0); HEMATOCRIT 40.6 % (42.0-52.0); HEMOGLOBIN 13.2 g/dl (13.5-17.5); LYMPH # 1.7 10^3/uL (1.5-5.0); LYMPH % 16.8 % (24.0-44.0); MEAN CORPUSCULAR HEMOGLOBIN 27.7 pg (27.0-33.0); MEAN CORPUSCULAR HGB CONC 32.5 g/dl (32.0-36.5); MEAN CORPUSCULAR VOLUME 85.3 fl (80.0-96.0); MONO # 1.1 10^3/uL (0.0-0.8); MONO % 10.6 % (2.0-8.0); NEUTROPHILS # 6.9 10^3/uL (1.5-8.5); NEUTROPHILS % 67.9 % (36.0-66.0); PLATELET COUNT, AUTOMATED 207 10^3/uL (150-450); RED BLOOD COUNT 4.76 10^6/uL (4.30-6.10); WHITE BLOOD COUNT 10.2 10^3/uL (4.0-10.0)
[2024-05-31 00:34] LABS: INR 0.98; PARTIAL THROMBOPLASTIN TIME 34.5 SECONDS (24.8-34.2); PROTHROMBIN TIME 13.2 SECONDS (12.5-14.5)
[2024-05-31 00:46] LABS: ALBUMIN 3.3 G/DL (3.2-5.2); ALKALINE PHOSPHATASE 138 U/L (40-129); ALT/SGPT 29 U/L (7.0-40); AST/SGOT 43 U/L (<34); BILIRUBIN,TOTAL 0.8 MG/DL (0.3-1.2); BLOOD UREA NITROGEN 12 MG/DL (9-23); CALCIUM LEVEL 8.9 MG/DL (8.3-10.6); CARBON DIOXIDE LEVEL 27 MMOL/L (20-31); CHLORIDE LEVEL 106 MMOL/L (98-107); CPK CREATINE PHOSPHOKINASE 176 U/L (46-171); CREATININE FOR GFR 1.02 MG/DL (0.70-1.30); GLOMERULAR FILTRATION RATE > 60.0 (>42); GLUCOSE, FASTING 110 MG/DL (74-106); MAGNESIUM LEVEL 1.8 MG/DL (1.8-2.4); PHOSPHORUS LEVEL 3.6 MG/DL (2.4-5.1); POTASSIUM SERUM 3.6 MMOL/L (3.5-5.1); SODIUM LEVEL 143 MMOL/L (136-145); TOTAL PROTEIN 6.7 G/DL (5.7-8.2)
[2024-05-31 06:50] VITALS: TEMP 98; O2SAT 94
== END 2024-05-31 07:05 | disposition short-term general hospital (02) ==
LOC: M ED 23:20 → EDBD 23:20 → M ED 05-31 07:05
DX: I21.4 Non-ST elevation (NSTEMI) myocardial infarction (principal); I25.10 Atherosclerotic heart disease of native coronary artery without angina pectoris; I25.2 Old myocardial infarction; J44.9 Chronic obstructive pulmonary disease, unspecified; Z79.82 Long term (current) use of aspirin; Z79.899 Other long term (current) drug therapy

== ENCOUNTER → 2024-08-11 | Outpatient (CLI) | payer MEDICARE, MEDICAID | LOC: M LAB 07:46 | PROVIDERS: ATTEND Internal Medicine Cardiovascular Disease | DX: R79.89 Other specified abnormal findings of blood chemistry (principal) ==

== ENCOUNTER → 2024-10-02 | Outpatient (CLI) | payer MEDICARE, MEDICAID | LOC: M RAD 08:15 | PROVIDERS: ATTEND Physician Assistant | DX: S22.080A Wedge compression fracture of T11-T12 vertebra, initial encounter for closed fracture (principal); M47.9 Spondylosis, unspecified; Y93.9 Activity, unspecified; Y92.9 Unspecified place or not applicable ==

== ENCOUNTER → 2024-10-26 | Outpatient (REF) | payer MEDICARE, OTHER ==
[2024-10-26 18:14] LABS: PSA SCREENING 0.42 NG/ML (< 4.00)
[2024-10-26 18:16] LABS: ALKALINE PHOSPHATASE 135 U/L (40-129); ALT/SGPT 19 U/L (7.0-40); AST/SGOT 23 U/L (<34); BILIRUBIN,TOTAL 0.7 MG/DL (0.3-1.2); BLOOD UREA NITROGEN 12 MG/DL (9-23); CALCIUM LEVEL 8.8 MG/DL (8.3-10.6); CARBON DIOXIDE LEVEL 29 MMOL/L (20-31); CHLORIDE LEVEL 107 MMOL/L (98-107); CHOLESTEROL LEVEL 146 MG/DL (<200); CHOLESTEROL RISK RATIO 3.16 (<5); CREATININE FOR GFR 0.87 MG/DL (0.70-1.30); GLOMERULAR FILTRATION RATE > 90.0 (>42); GLUCOSE, FASTING 123 MG/DL (74-106); HDL CHOLESTEROL 46.1 MG/DL (>40); LDL CHOLESTEROL 45.7 MG/DL (<100); NON-HDL-C 99.9 MG/DL; POTASSIUM SERUM 3.4 MMOL/L (3.5-5.1); SODIUM LEVEL 145 MMOL/L (136-145); TRIGLYCERIDES LEVEL 271 MG/DL (<150)
[2024-10-26 18:19] LABS: THYROID STIMULATING HORMONE 0.552 uIU/ML (0.55-4.78); TOTAL 25(OH) VITAMIN D 18.7 NG/ML (20.0-100.0)
[2024-10-26 18:39] LABS: HEMOGLOBIN A1c 6.2 % (4.0-6.0)
== END ==
LOC: M LAB REF 17:31
PROVIDERS: ATTEND Physician Assistant
DX: Z12.5 Encounter for screening for malignant neoplasm of prostate (principal); E55.9 Vitamin D deficiency, unspecified; I10 Essential (primary) hypertension; Z79.899 Other long term (current) drug therapy
CPT/HCPCS: 80053; 80061; 82306; 83036; 84443; G0103

== ENCOUNTER → 2024-12-31 | Outpatient (CLI) | payer MEDICARE, OTHER | LOC: M RAD 15:23 | PROVIDERS: ATTEND Physician Assistant | DX: R05.8 Other specified cough (principal) ==

== ENCOUNTER → 2025-02-09 | Outpatient (CLI) | payer MEDICARE | LOC: M RAD 13:56 | PROVIDERS: ATTEND Nurse Practitioner Adult Health | DX: Z12.2 Encounter for screening for malignant neoplasm of respiratory organs (principal); Z87.891 Personal history of nicotine dependence; N62 Hypertrophy of breast ==

== ENCOUNTER → 2025-03-16 | Outpatient (REF) | payer MEDICARE, OTHER ==
[2025-03-16 18:58] LABS: PLATELET COUNT, AUTOMATED 270 10^3/uL (150-450)
[2025-03-16 20:00] LABS: ESTIMATED AVERAGE GLUCOSE 131.0 MG/DL (60-110)
[2025-03-16 20:05] LABS: CALCIUM LEVEL 9.2 MG/DL (8.3-10.6); CARBON DIOXIDE LEVEL 31 MMOL/L (20-31); CHLORIDE LEVEL 102 MMOL/L (98-107); CREATININE FOR GFR 0.90 MG/DL (0.70-1.30); GLOMERULAR FILTRATION RATE > 90.0 (>42); POTASSIUM SERUM 4.3 MMOL/L (3.5-5.1); SODIUM LEVEL 144 MMOL/L (136-145)
[2025-03-16 20:07] LABS: TOTAL 25(OH) VITAMIN D 53.6 NG/ML (20.0-100.0)
== END ==
LOC: M LAB REF 16:18
PROVIDERS: ATTEND Physician Assistant
DX: I10 Essential (primary) hypertension (principal); E03.9 Hypothyroidism, unspecified; R73.03 Prediabetes; E55.9 Vitamin D deficiency, unspecified

== ENCOUNTER → 2025-04-26 | Outpatient (CLI) | payer MEDICARE, MEDICAID | LOC: M RAD 07:13 | PROVIDERS: ATTEND Nurse Practitioner Adult Health | DX: R91.8 Other nonspecific abnormal finding of lung field (principal) ==

== ENCOUNTER → 2025-05-17 | Outpatient (CLI) | payer MEDICARE, MEDICAID | LOC: M PLARAD 14:08 | PROVIDERS: ATTEND Nurse Practitioner Adult Health | DX: R91.8 Other nonspecific abnormal finding of lung field (principal) | CPT/HCPCS: 78815; A9552 ==